=== PATIENT | female | born 1950 | race Caucasian/White ===

== ENCOUNTER 2023-11-22 15:34 | Emergency (ER) | payer MEDICARE, SELFPAY ==
[2023-11-22 15:40] VITALS: BP 124/82; PULSE 101; RESP 18; O2SAT 95; BMI 34.1
--- NOTE | 2023-11-22 15:45 | XR_ITS ---
The [address] [address] Patient Name: ROSI DENNEY MRN: [id number] date: 1950 Sex: F Assigned Patient Location: ER Current Patient Location: ED.MAIN Accession/Order Number: [id number] Exam Date: 11/22/2023 15:55 Report Date: 11/22/2023 16:14 At the request of: CANDI MATTA Procedure: XR chest 1V EXAM: Chest x-ray HISTORY: . Cough, covid + . COMPARISON: None. TECHNIQUE: Single view of the chest FINDINGS: Vascularity are unremarkable. Lungs are free of focal infiltrates. Grossly no bony abnormality is appreciated. XR/XR chest 1V IMPRESSION: No acute heart or lung disease identified. Electronically authenticated by: RICHARD ANDRADE Date: 11/22/2023 16:14
[2023-11-22 15:46] VITALS: O2SAT 97
--- NOTE | 2023-11-22 15:47 | ED.URI1 ---
HPI - URI/Sore Throat General Chief Complaint: Upper Respiratory Infection Stated Complaint: COVID POS-ASTHMA DIFF BREATHING Time Seen by Provider: 11/22/23 15:35 Source: patient Limitations: no limitations History of Present Illness HPI Narrative: Patient is a 73-year-old female with a history of asthma who presents to the emergency department for COVID type symptoms for the past 5 days. She states she had multiple family member sick with COVID in the home, she took a positive home test this week after being sick and taking care of them. She states she has a history of asthma and uses multiple inhalers although she is not able to use albuterol because it makes her tachycardic. She states she believes the COVID illness is exacerbating her asthma although she is not noted to be wheezing. She states when she has had similar asthma exacerbations in the past she needs a Z-Elia and steroids. She has not had any objective fevers in the last several days although she had fevers at the beginning of the course of her illness. She does not complain of chest pain, she has had minimal sputum production. She states she is only short of breath when she is coughing vigorously. No other medications taken prior to arrival. She is anticoagulated with Xarelto for her history of A-fib Related Data Home Medications Medication Instructions Recorded Confirmed cyclobenzaprine 10 mg tablet 10 mg PO .qhs PRN muscle spasm 11/22/23 11/22/23 diltiazem HCl 180 mg 180 mg PO Q24H 11/22/23 11/22/23 capsule,extended release 24 hr fluticasone 250 mcg-salmeterol 50 1 inh inhalation Q12H 11/22/23 11/22/23 mcg/dose blistr powdr for inhalation (Advair Diskus) levalbuterol tartrate 45 2 puff inhalation BID 11/22/23 11/22/23 mcg/actuation aerosol inhaler montelukast 10 mg tablet 10 mg PO QDAY 11/22/23 11/22/23 oxycodone 5 mg tablet 5 mg PO .qhs 11/22/23 11/22/23 pregabalin 150 mg capsule 150 mg PO QDAY 11/22/23 11/22/23 rivaroxaban 20 mg tablet (Xarelto) 20 mg PO Q24H 11/22/23 11/22/23 Previous Rx's Medication Instructions Recorded azithromycin 250 mg tablet See Rx Instructions PO .COMPLEX #6 11/22/23 (Zithromax Z-Elia) tabs ondansetron 4 mg disintegrating 4 mg PO Q6H PRN nausea and 11/22/23 tablet vomiting #12 tabs prednisone 20 mg tablet See Rx Instructions .Route 11/22/23 .COMPLEX #9 tabs Allergies Allergy/AdvReac Type Severity Reaction Status Date / Time acetaminophen [From Tylenol] AdvReac Verified 11/22/23 15:40 ibuprofen [From Advil] AdvReac Verified 11/22/23 15:40 Review of Systems ROS Constitutional Reports: fever; Denies: chills Ears, nose, mouth, and throat Denies: nasal congestion Cardiovascular Denies: chest pain Respiratory Reports: shortness of breath and cough; Denies: wheezing or coughing up blood Gastrointestinal Denies: nausea, vomiting or diarrhea Genitourinary Denies: painful urination Musculoskeletal Denies: back pain or neck pain Integumentary/Breast Denies: rash Neurological Denies: headache Hematologic/Lymphatic Denies: easy bruising PFSH PFSH Social History Smoking status: Never smoker Exam Narrative Exam Narrative: Gen.: Awake, alert, in no distress Head: Normocephalic, atraumatic ENT: Moist mucous membranes Respiratory: No respiratory distress, lungs clear bilaterally; harsh dry cough noted; no wheezing or rhonchi Cardio: Regular rate and rhythm Extremities: Moves extremities equally Psych: Normal mood and affect Neuro: No focal neuro deficit Skin: Warm, dry, intact Constitutional Vital Signs, click to edit/add: Last Vital Signs Pulse 101 H 11/22/23 15:40 Resp 18 11/22/23 15:40 BP 124/82 11/22/23 15:40 Pulse Ox 97 11/22/23 15:46 O2 Del Method Room Air 11/22/23 15:46 Course Vital Signs Vital signs: Vital Signs Pulse Rate 101 H 11/22/23 15:40 Respiratory Rate 18 11/22/23 15:40 Blood Pressure 124/82 11/22/23 15:40 Pulse Oximetry 95 11/22/23 15:40 Oxygen Delivery Method Room Air 11/22/23 15:40 Pulse Rate 101 H 11/22/23 15:40 Respiratory Rate 18 11/22/23 15:40 Blood Pressure 124/82 11/22/23 15:40 Pulse Oximetry 97 11/22/23 15:46 Oxygen Delivery Method Room Air 11/22/23 15:46 MDM - URI/Sore Throat MDM Narrative Medical decision making narrative: Patient with stable vital signs in the ER, she maintains normal oxygen saturation. Chest x-ray shows no evidence of acute cardiopulmonary changes. Patient mentions multiple times she thinks she needs a Z-Elia and it was explained to her that the Z-Elia will not likely improve her illness but given her age and history, she is given a Z-Elia and prednisone. She is not wheezing in the ER, she has no hypoxia and she is anticoagulated. She is discharged home with prescriptions to continue her home inhalers, Zofran given as needed for nausea. Follow-up with PCP and return to the ER if symptoms change or worsen. Patient is well-hydrated and nontoxic with stable respiration at time of reevaluation by attending physician prior to discharge. Medical Records Attestation: I reviewed the patient's medical records. Imaging Data Chest x-ray: Attestation: I have reviewed the pertinent imaging results. Radiologist's impression: Procedure: XR chest 1V EXAM: Chest x-ray HISTORY: . Cough, covid + . COMPARISON: None. TECHNIQUE: Single view of the chest FINDINGS: Vascularity are unremarkable. Lungs are free of focal infiltrates. Grossly no bony abnormality is appreciated. IMPRESSION: No acute heart or lung disease identified. Electronically authenticated by: RICHARD ANDRADE Date: 11/22/2023 16:14 Discharge Plan Discharge Chief Complaint: Upper Respiratory Infection Clinical Impression: COVID-19 Patient Disposition: Home, Self-Care Time of Disposition Decision: 16:24 Condition: Good Prescriptions / Home Meds: New prednisone 20 mg tablet See Rx Instructions .ROUTE .COMPLEX Qty: 9 0RF Rx Instructions: 3 tabs daily for 1 days, then 2 tabs daily for 2 days, then 1 tab daily for 2 days; to begin steroids 11/23/23 azithromycin [Zithromax Z-Elia] 250 mg tablet See Rx Instructions .ROUTE .COMPLEX Qty: 6 0RF Rx Instructions: For 250 mg dose pack: take 500 mg today (day 1), then 250 mg for 4 days (days 2-5) ondansetron 4 mg tablet,disintegrating 4 mg PO Q6H PRN (Reason: nausea and vomiting) Qty: 12 0RF No Action cyclobenzaprine 10 mg tablet 10 mg PO .qhs PRN (Reason: muscle spasm) diltiazem HCl 180 mg capsule,extended release 24hr 180 mg PO Q24H fluticasone propion-salmeterol [Advair Diskus] 250-50 mcg/dose blister with device 1 inh INHALATION Q12H levalbuterol tartrate 45 mcg/actuation HFA aerosol inhaler 2 puff INHALATION BID montelukast 10 mg tablet 10 mg PO QDAY oxycodone 5 mg tablet 5 mg PO .qhs pregabalin 150 mg capsule 150 mg PO QDAY Xarelto 20 mg tablet 20 mg PO Q24H Instructions: COVID-19 (Coronavirus Disease 2019) (ED), How to Recover from COVID-19 at Home (ED) Stand Alone Forms: Portal Instructions Referrals: Giovanny Ellington DO [Primary Care Provider] - 1 week
[2023-11-22] MEDS: PREDNISONE 20 MG TABLET 60 MG PO (16:12)
[2023-11-22 16:35] VITALS: BP 120/72; PULSE 88; RESP 22; O2SAT 97
== END 2023-11-22 16:36 | disposition home or self-care (01) ==
PROVIDERS: Emergency Provider Emergency Medicine; PCP Internal Medicine
DX: U07.1 COVID-19 (principal); J45.909 Unspecified asthma, uncomplicated; Z79.899 Other long term (current) drug therapy; Z79.01 Long term (current) use of anticoagulants; I48.91 Unspecified atrial fibrillation
CPT/HCPCS: 71045; 99283

== ENCOUNTER 2024-01-15 08:57 | Outpatient (OUT) | payer MEDICARE, SELFPAY ==
[2024-01-15 09:12] LABS: Basophils Absolute Auto 0.1 10^3/uL (0.0-0.1); Basophils Percent Auto 0.9 % (0.2-2.0); Eosinophils Absolute Auto 0.2 10^3/uL (0.0-0.7); Eosinophils Percent Auto 1.6 % (0.9-7.0); Hematocrit 47.1 % (36.0-48.0); Hemoglobin 14.9 g/dL (12.0-16.0); Immature Granulocytes Abs Auto 0.03 10^3/uL (0.00-0.03); Immature Granulocytes Pct Auto 0.3 % (0.0-0.5); Lymphocytes Absolute Auto 2.5 10^3/uL (1.2-3.8); Lymphocytes Percent Auto 27.1 % (20.5-60.0); Mean Corpuscular HGB Conc 31.6 g/dL (29.9-35.2); Mean Corpuscular Hemoglobin 27.7 pg (26.7-34.0); Mean Corpuscular Volume 87.5 fL (81.0-99.0); Mean Platelet Volume 9.7 fL (9.5-13.5); Monocytes Absolute Auto 0.7 10^3/uL (0.3-0.8); Monocytes Percent Auto 7.8 % (1.7-12.0); Neutrophils Absolute Auto 5.7 10^3/uL (1.4-6.5); Neutrophils Percent Auto 62.3 % (43.0-75.0); Platelet Count 301 10^3/uL (150-450); Red Blood Count 5.38 10^6/uL (4.20-5.40); Red Cell Distribution Width 14.3 % (11.0-15.0); White Blood Count 9.2 10^3/uL (4.0-11.0)
--- NOTE | 2024-01-15 09:16 | MM_ITS ---
Patient Name: ROSI DENNEY MR#: [id number] : 1950 Exam Date: 01/15/2024 Ordering Doctor: DR Giovanny Ellington D.O. RADIOLOGY REPORT PROCEDURE: MM TOMOSYNTHESIS SCREENING BI COMPARISON: MM SCREENING MAMMO BI, 03/08/2021. INDICATIONS: screening Calculator Name NCI Breast Cancer Risk Assessment Tool 5 Year Breast Cancer Risk Not Reported. Lifetime Breast Cancer Risk Not Reported. Personal Breast Cancer No Personal Ovarian Cancer No Treatments None Family Cancers None LOCATION: [facility] BREAST COMPOSITION: Scattered areas fibroglandular density. FINDINGS: DIAGNOSTIC CATEGORY 1--NEGATIVE. RIGHT BREAST: No significant suspicious finding. No significant change has occurred. LEFT BREAST: No significant suspicious finding. No significant change has occurred. RECOMMENDATIONS: ROUTINE MAMMOGRAM AND CLINICAL EVALUATION IN 12 MONTHS. PLEASE NOTE: A NORMAL MAMMOGRAM DOES NOT EXCLUDE THE POSSIBILITY OF BREAST CANCER. A CLINICALLY SUSPICIOUS PALPABLE LUMP SHOULD BE BIOPSIED. Dictated by: Caio Mathews M.D. on 01/21/2024 at 10:41 Approved by: Caio Mathews M.D. on 01/21/2024 at 10:49
[2024-01-15 09:29] LABS: Alanine Aminotransferase 17 U/L (14-59); Anion Gap 10.7; BUN Creatinine Ratio 12.8; Calcium 8.9 mg/dL (8.5-10.1); Carbon Dioxide 29.5 mmol/L (21.0-32.0); Chloride 109 mmol/L (98-107); Chol HDL Ratio 4.7; Cholesterol 200 mg/dL (<=200); Estimated GFR (African America 60 (>=60); Estimated GFR (Non-African Ame 49 (>=60); Glucose 101 mg/dL (74-106); HDL Cholesterol 43 mg/dL (40-60); LDL Cholesterol Calculated 136.8 mg/dL; Potassium 4.2 mmol/L (3.5-5.1); Sodium 145 mmol/L (136-145); Triglycerides 101 mg/dL (<=150); VLDL CHOLESTEROL 20.2 mg/dL
== END 2024-01-15 08:58 | disposition home or self-care (01) ==
LOC: MAMMO 08:57
PROVIDERS: PCP Internal Medicine; Visit Provider Internal Medicine
DX: E78.2 Mixed hyperlipidemia (principal); I10 Essential (primary) hypertension; I48.0 Paroxysmal atrial fibrillation; Z12.31 Encounter for screening mammogram for malignant neoplasm of breast
CPT/HCPCS: 36415; 77063; 77067; 80048; 80061; 84460; 85025

== ENCOUNTER 2024-08-03 10:28 | Outpatient (REF) | payer MEDICARE, SELFPAY ==
[2024-08-03 12:22] LABS: Internal Control Within Normal Limits; SARS-CoV-2 Ag NEGATIVE (NEGATIVE)
== END 2024-08-03 10:29 | disposition home or self-care (01) ==
LOC: LAB 10:28
PROVIDERS: PCP Internal Medicine; Visit Provider Internal Medicine
DX: Z20.822 Contact with and (suspected) exposure to COVID-19 (principal)
CPT/HCPCS: 87635; 87811

== ENCOUNTER 2024-10-05 14:47 | Outpatient (OUT) | payer MEDICARE, SELFPAY | END 2024-10-05 14:48 | disposition home or self-care (01) | LOC: PST 14:47 | PROVIDERS: PCP Internal Medicine; Visit Provider Ophthalmology | DX: Z01.818 Encounter for other preprocedural examination (principal); H25.12 Age-related nuclear cataract, left eye ==

== ENCOUNTER 2024-10-07 07:19 | Day surgery (SDC) | payer MEDICARE, SELFPAY ==
--- NOTE | 2024-10-07 | OP_ITS ---
OPERATION DATE: 10/07/2024 SURGEON: Bill Bland D.O. PREOPERATIVE DIAGNOSIS: Nuclear sclerotic cataract left eye POSTOPERATIVE DIAGNOSIS: Nuclear sclerotic cataract left eye. PROCEDURE NAME: Cataract extraction with intraocular lens placement of the left eye. ANESTHESIA: Topical ESTIMATED BLOOD LOSS: Zero. COMPLICATIONS: None. PROCEDURE: The patient was brought to the Operating Room in supine position. After proper identification, the left eye was prepped and draped in a sterile ophthalmic fashion. A paracentesis was created at the 5 o'clock position. Approximately 1 cc of unpreserved Xylocaine was injected into the anterior chamber followed by Amvisc Plus. Using a 2.6 mm Keratome blade, a clear corneal incision was created at the 2 o'clock limbus. A cystotome was then used to begin a curvilinear capsulorrhexis that was continued for 360 degrees with the Utrata forceps. BSS on a 26 gauge cannula was injected beneath the anterior capsule to hydrodissect as well as hydrodelineate the lens. After ensuring mobility, phacoemulsification was performed in a mhlganb-czv-nehffo-type fashion. After all nuclear material had been removed from the eye, IA was introduced and all residual cortical material was cleaned up. Additional Amvisc Plus was injected into the posterior bag and a lens model MX60, 22.0 diopters was injected and dialed into position. After ensuring centration, IA was re- introduced into the anterior chamber and all residual Amvisc Plus was removed from the eye. BSS on a 30 gauge cannula was injected into the stroma of both the clear corneal incision as well as paracentesis to hydrate the wounds. Additional BSS was injected into the anterior chamber to pressurize the eye at approximately 20 to 22 mmHg by finger tension. 0.1 cc of antibiotic was injected into the anterior chamber, and Weck-Malina sponges were used to check the wounds to be watertight. One drop of apraclonidine and one drop of prednisolone acetate were placed into the eye and a shield was placed over top. The patient was sent to the postoperative area in satisfactory condition to follow up the following day for postoperative care. ISMAEL
--- NOTE | 2024-10-07 07:19 | HP_ITS ---
PREOPERATIVE HISTORY AND PHYSICAL Date:? 10/07/2024 HISTORY:? The patient is a 73-year-old white female with complaints of declining vision out of her left eye.? She believes that this has been ongoing for approximately 1-2 years, gradually worsening over that time frame.? She has difficulty watching television and seeing the TV guide.? She also has difficultly seeing the road signs at a distance.? Finally, she states having difficulty at night time while driving because of headlights creating halos and glare.? PAST OCULAR HISTORY:? Dry eyes. PAST MEDICAL HISTORY:? 1.? Paroxysmal atrial fibrillation. 2.? Sleep apnea. 3.? Non-alcoholic fatty liver disease. 4.? Asthma. 5.? Mitral insufficiency. 6.? Hypertension. 7.? Hyperlipidemia. 8.? Bradycardia. SOCIAL HISTORY:? No tobacco, alcohol or recreational drug abuse.? SYSTEMIC MEDICATIONS:? Include Lyrica, doxycycline, Zofran, fluticasone, salmeterol, diltiazem, ALLERGIES:? To acetaminophen, metronidazole, aspirin, iodinated contrast media and NSAIDs. REVIEW OF SYSTEMS:? No pertinent positives. PHYSICAL EXAM:? GENERAL:? She is awake, alert and oriented x3, well developed, well nourished, in no acute distress.? HEART:? Regular rate and rhythm. LUNGS:? Clear bilaterally. ABDOMEN:? Soft, non-tender, non-distended. EXTREMITIES:? No pitting edema. OPHTHALMIC EXAM:? Revealed a visual acuity of 20/50 bilaterally that glared to 20/200 bilaterally.? Pupils motility, muscle balance, confrontational visual perry within normal limits bilaterally.? Pressures were measured at 16 bilaterally.? Slit lamp exam revealed blepharitis with a severe decrease in tear film bilaterally.? Conjunctiva, cornea, anterior chamber and iris were within normal limits bilaterally.? Lens status demonstrated 3+ nuclear sclerosis, 1+ cortical changes in the right; 2-3+ nuclear sclerosis and 1+ cortical changes in the left eye.? FUNDUS EXAM:? Revealed a good view with good dilation bilaterally.? Optic discs, vessels, periphery and vitreous were within normal limits bilaterally.? The macula demonstrate mottling of the retina pigment epithelium bilaterally.?? ASSESSMENT AND PLAN:? Visually significant cataract, left eye.? After risks, benefits, alternatives, as well as expectations were delivered to the patient, she elected to go forward with cataract removal.? She understands the risks include but not limited to infection, bleeding, loss of vision, loss of the eye itself.? Secondly, she understands postoperatively she is likely to require spectacle correction for best visual acuity.? Finally, a complete ophthalmic exam was performed, there is not determined to be any other source of visual decline other than that of the cataract.? After understanding all the risks as well as expectations, she elected to go forward with procedure as listed above and will be doing so in the near future. ISMAEL
[2024-10-07] MEDS: TROPICAMIDE 1% OP SOL 300 DROP/15 ML BOTTLE OP ×4 (07:34→07:59)
[2024-10-07] MEDS: PHENYLEPHRINE HCL 2.5% OP SOL 40 DROP/2 ML BOTTLE OP ×4 (07:34→08:00)
[2024-10-07] MEDS: DIAZEPAM 5 MG TABLET PO (07:34)
[2024-10-07] MEDS: CYCLOPENTOLATE HCL 1% OP SOL 40 DROP/2 ML BOTTLE OP ×4 (07:35→08:00)
[2024-10-07] MEDS: OFLOXACIN 0.3% OP SOL 100 DROP/5 ML BOTTLE OP ×4 (07:35→08:00)
[2024-10-07 07:40] VITALS: BP 163/76; PULSE 89; TEMP 36.2; O2SAT 95
[2024-10-07] MEDS: LIDOCAINE 2% JELLY 10 ML TOPICAL (08:38)
[2024-10-07] MEDS: PROPARACAINE HCL 0.5% 300 DROP/15 ML BOTTLE OP (08:39)
[2024-10-07] MEDS: BETADINE POVIDONE-IODINE 5% OP SOL 30 ML BOTTLE OP (08:41)
[2024-10-07] MEDS: HYALURONATE SODIUM 16 MG/ML SYRINGE OP (08:46)
[2024-10-07] MEDS: PHENYLEPHRINE/KETOROLAC 1-0.3% ML VIAL 4 ML IRR (08:46)
[2024-10-07] MEDS: LIDOCAINE HCL 1% PF 20 MG/2 ML VIAL INJ (08:46)
[2024-10-07] MEDS: TETRACAINE HCL 0.5% OP SOL 80 DROP/4 ML BOTTLE OP (08:47)
[2024-10-07] MEDS: CEFUROXIME SODIUM 750 MG, 0.9 % SODIUM CHLORIDE 16.3 ML OP (08:47)
[2024-10-07 08:48] VITALS: BP 154/85; BP 156/89; PULSE 72; PULSE 78; O2SAT 99
[2024-10-07] MEDS: PREDNISOLONE ACETATE OP 1% SUSP 100 DROPS/5 ML 1 DROP OP (08:57)
[2024-10-07] MEDS: APRACLONIDINE HCL 0.5% SOL 100 DROP/5 ML BOTTLE OP (08:57)
== END 2024-10-07 09:18 | disposition home or self-care (01) ==
LOC: SURGOUT 07:20
PROVIDERS: PCP Internal Medicine; Visit Provider Ophthalmology
PROC: (CPT 66984; principal; 2024-10-07 08:30)
DX: H25.12 Age-related nuclear cataract, left eye (principal)
CPT/HCPCS: 66984; J0697; V2630

== ENCOUNTER 2024-10-23 16:16 | Emergency (ER) | payer MEDICARE, SELFPAY ==
[2024-10-23 16:20] VITALS: BP 182/92; PULSE 86; TEMP 36.7; O2SAT 97; BMI 36.3
--- NOTE | 2024-10-23 16:29 | XR_ITS ---
The [address] [address] Patient Name: ROSI DENNEY MRN: [id number] date: 1950 Sex: F Assigned Patient Location: ER Current Patient Location: ER Accession/Order Number: [id number] Exam Date: 10/23/2024 16:43 Report Date: 10/23/2024 17:34 At the request of: JERMAIN NEWELL Procedure: XR knee LT 3V PROCEDURE: XR knee LT 3V, 10/23/2024 4:43 PM EST CLINICAL INDICATIONS: Traumatic injury and fall, knee pain COMPARISON: None TECHNIQUE: Left knee, 3 views FINDINGS: Anatomic alignment of left total knee arthroplasty is present. Visualized hardware intact. Acute osseous pathology is not seen. Mild medial collateral ligament enthesopathy noted. Large knee effusion is not suspected although assessment is severely limited given obliquity on the lateral projection. Vascular calcifications are seen. XR/XR knee LT 3V IMPRESSION: 1. No acute traumatic osseous pathology 2. Left total knee arthroplasty, visualized hardware intact 3. Medial collateral ligament enthesopathy 4. Lateral knee assessment is nondiagnostic given obliquity. Electronically authenticated by: MARISOL RAMIREZ Date: 10/23/2024 17:34
--- NOTE | 2024-10-23 16:29 | CT_ITS ---
The [address] [address] Patient Name: ROSI DENNEY MRN: [id number] date: 1950 Sex: F Assigned Patient Location: ER Current Patient Location: ER Accession/Order Number: [id number] Exam Date: 10/23/2024 16:43 Report Date: 10/23/2024 17:24 At the request of: JERMAIN NEWELL Procedure: CT head/brain wo con CT HEAD WITHOUT CONTRAST. INDICATION: Fall. COMPARISON: None available for comparison TECHNIQUE: Axial CT head images from the skull base to the vertex without IV contrast were acquired. Coronal and sagittal reformats were also obtained. FINDINGS: EXTRA-AXIAL SPACE: Age-appropriate ventricles. No acute extra-axial collection. No extra-axial mass. No midline shift. CEREBRUM: There are areas of periventricular and deep white matter low-attenuation, which is nonspecific but likely reflective of chronic microvascular ischemic disease.. No CT evidence of acute large territorial cortical infarct, hemorrhage or mass effect. CEREBELLUM: No focal abnormality. No CT evidence of acute infarct, hemorrhage or mass effect. BRAINSTEM: No focal abnormality. No CT evidence of acute infarct, hemorrhage or mass effect. EXTRACRANIAL STRUCTURES. The paranasal sinuses are clear. Mastoid air cells are clear. Orbits are unremarkable. No discrete pituitary mass. Intact calvarium. CT/CT head/brain wo con IMPRESSION: No acute intracranial abnormality. Electronically authenticated by: ESTHER HILL Date: 10/23/2024 17:24
--- NOTE | 2024-10-23 16:30 | ED_ITS ---
HPI HPI - General Adult General Chief complaint: Head Injury Stated complaint: FALL, ON BLOOD THINNERS Time Seen by Provider: 10/23/24 16:19 Source: patient Mode of arrival: walk-in Limitations: no limitations History of Present Illness HPI narrative: 73-year-old female presents for head injury and left knee pain. She fell 20 minutes ago and hit her left temporal area as well as her left knee. This happened when she tripped in a parking lot. She has a little bit of neck discomfort as well. Her hips do not hurt. She is on Xarelto but ran out 5 days ago. Related Data Home Medications ?Medication ?Instructions ?Recorded ?Confirmed cyclobenzaprine 10 mg tablet 10 mg PO .qhs PRN muscle spasm 11/22/23 10/23/24 fluticasone 250 mcg-salmeterol 50 1 inh inhalation Q12H 11/22/23 10/23/24 mcg/dose blistr powdr for inhalation (Advair Diskus) levalbuterol tartrate 45 2 puff inhalation BID 11/22/23 10/23/24 mcg/actuation aerosol inhaler montelukast 10 mg tablet 10 mg PO QDAY 11/22/23 10/23/24 pregabalin 150 mg capsule 150 mg PO QDAY 11/22/23 10/23/24 rivaroxaban 20 mg tablet (Xarelto) 20 mg PO Q24H 11/22/23 10/23/24 diltiazem HCl 120 mg 120 mg PO Q24H 10/23/24 10/23/24 capsule,extended release 24 hr epinephrine 0.3 mg/0.3 mL 0.3 ml subcut Q4H 10/23/24 10/23/24 injection, auto-injector Allergies Allergy/AdvReac Type Severity Reaction Status Date / Time iodine Allergy Severe Anaphylaxis Verified 10/23/24 16:26 metronidazole Allergy Severe Unknown Verified 10/23/24 16:26 acetaminophen (From Tylenol) AdvReac Unknown Verified 10/23/24 16:26 ibuprofen (From Advil) AdvReac Unknown Verified 10/23/24 16:26 Opioid HPI Opioid Management Most Recent Opioid Data: Last Pain Scale 5 10/23/24 16:31 10/23/24 Review of Systems ROS Narrative A ten point review of systems is negative except as noted above. PFS PFSH Medical History (Updated 10/23/24 @ 18:00 by Alvino Allen MD) Nonalcoholic fatty liver disease ?K76.0 - Fatty (change of) liver, not elsewhere classified (ICD-10) COVID-19 ?U07.1 - COVID-19 (ICD-10) Degenerative joint disease ?M19.90 - Unspecified osteoarthritis, unspecified site (ICD-10) A-fib ?I48.91 - Unspecified atrial fibrillation (ICD-10) Asthma ?J45.909 - Unspecified asthma, uncomplicated (ICD-10) TIA (transient ischemic attack) ?G45.9 - Transient cerebral ischemic attack, unspecified (ICD-10) Surgical History (Updated 10/04/24 @ 14:41 by Corrie Lanier) History of eyelid surgery ?Z98.890 - Other specified postprocedural states (ICD-10) H/O: hysterectomy ?Z90.710 - Acquired absence of both cervix and uterus (ICD-10) H/O oophorectomy History of hip replacement ?Z96.649 - Presence of unspecified artificial hip joint (ICD-10) Total knee replacement status ?Z96.659 - Presence of unspecified artificial knee joint (ICD-10) H/O knee surgery ?Z98.890 - Other specified postprocedural states (ICD-10) Family History (Updated 10/04/24 @ 14:42 by Corrie Lanier) Other Black lung Liver disease Rheumatic heart disease Social History (Updated 10/04/24 @ 14:43 by Corrie Lanier) Within the past year, how often did you have a drink containing alcohol: never Score interpretation: A score less than 3 is consistent with normal alcohol consumption. 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 General: The patient appears in no apparent distress. Patient is resting comfortably on cart. Skin: Warm, dry, no pallor noted. There is no rash noted. Head: Normocephalic, bruising present in the left temporal region. Eye: Normal conjunctiva, no drainage Ears, Nose, Mouth, and Throat: oral mucosa is moist. Cardiovascular: Irregularly irregular Respiratory: Patient is in no distress, no accessory muscle use, lungs are clear to auscultation, no wheezing, rales or rhonchi Back: Mild discomfort in the posterior neck. No tenderness in the thoracic or lumbar spines GI: Soft and nontender Musculoskeletal: The left knee has old healed surgical scar present. She has some tenderness. Knee has full range of motion as do both hips. Neurological: A&O, normal speech Psychiatric: Cooperative Constitutional Vital Signs, click to edit/add: Last Vital Signs Temp 98.1 F 10/23/24 16:20 Pulse 69 10/23/24 17:03 Resp 20 10/23/24 17:03 BP 164/82 H 10/23/24 17:03 Pulse Ox 99 10/23/24 17:03 O2 Del Method Room Air 10/23/24 16:20 Course Vital Signs Vital signs: Vital Signs Temperature 98.1 F 10/23/24 16:20 Pulse Rate 86 10/23/24 16:20 Respiratory Rate 18 10/23/24 16:20 Blood Pressure 182/92 H 10/23/24 16:20 Pulse Oximetry 97 10/23/24 16:20 Oxygen Delivery Method Room Air 10/23/24 16:20 Temperature 98.1 F 10/23/24 16:20 Pulse Rate 69 10/23/24 17:03 Respiratory Rate 20 10/23/24 17:03 Blood Pressure 164/82 H 10/23/24 17:03 Pulse Oximetry 99 10/23/24 17:03 Oxygen Delivery Method Room Air 10/23/24 16:20 Medical Decision Making MDM Narrative Medical decision making narrative: CAT scans of head and C-spine and the x-ray of her left knee are all negative per radiologist. She is able to be discharged home. Treatment diagnosis and follow-up were discussed with the patient. Differential Diagnosis Differential Diagnosis: Subarachnoid hemorrhage, SDH, epidural hematoma, head contusion Imaging Data CT scan - head: Radiologist's impression: ITS Impressions Head CT 10/23/24 16:29 IMPRESSION: No acute intracranial abnormality. Electronically authenticated by: ESTHER HILL Date: 10/23/2024 17:24 Knee X-Ray 10/23/24 16:29 IMPRESSION: 1. No acute traumatic osseous pathology 2. Left total knee arthroplasty, visualized hardware intact 3. Medial collateral ligament enthesopathy 4. Lateral knee assessment is nondiagnostic given obliquity. Electronically authenticated by: MARISOL RAMIREZ Date: 10/23/2024 17:[address] 10/23/24 16:30 IMPRESSION: Negative for fracture or subluxation. Degenerative changes. Electronically authenticated by: TORRIE RODRIGUEZ Date: 10/23/2024 17:45 Discharge Plan Discharge Chief Complaint: Head Injury Clinical Impression: Closed head injury, Fall Patient Disposition: Home, Self-Care Time of Disposition Decision: 17:59 Condition: Good Mode of Transportation: Private Vehicle Prescriptions / Home Meds: No Action cyclobenzaprine 10 mg tablet 10 mg PO .qhs PRN (Reason: muscle spasm) fluticasone propion-salmeterol [Advair Diskus] 250-50 mcg/dose blister with device 1 inh INHALATION Q12H levalbuterol tartrate 45 mcg/actuation HFA aerosol inhaler 2 puff INHALATION BID montelukast 10 mg tablet 10 mg PO QDAY pregabalin 150 mg capsule 150 mg PO QDAY Xarelto 20 mg tablet 20 mg PO Q24H diltiazem HCl 120 mg capsule,extended release 24hr 120 mg PO Q24H epinephrine 0.3 mg/0.3 mL auto-injector 0.3 ml subcut Q4H Print Language: Lithuanian Instructions: Fall Prevention for Older Adults (ED), Head Injury (ED) Referrals: Giovanny Ellington DO [Primary Care Provider] - 1 week
--- NOTE | 2024-10-23 16:30 | CT_ITS ---
The [address] [address] Patient Name: ROSI DENNEY MRN: [id number] date: 1950 Sex: F Assigned Patient Location: ER Current Patient Location: ER Accession/Order Number: [id number] Exam Date: 10/23/2024 16:43 Report Date: 10/23/2024 17:45 At the request of: JERMAIN NEWELL Procedure: CT cervical spine wo con EXAM: CT cervical spine wo con HISTORY: Fell, hit head, neck pain COMPARISON: None. TECHNIQUE: CT C-spine noncontrast. Axial scans with reformatted coronal sagittal images. Individualized radiation dose reduction used for this exam. FINDINGS: No fracture or subluxation. Atlantoaxial degenerative joint disease moderate. Mild disc narrowing spurring C5-6. Degenerative changes most prominent lower C-spine. Prevertebral soft tissues unremarkable. No lower neck or upper chest abnormality. CT/CT cervical spine wo con IMPRESSION: Negative for fracture or subluxation. Degenerative changes. Electronically authenticated by: TORRIE RODRIGUEZ Date: 10/23/2024 17:45
[2024-10-23 17:03] VITALS: BP 164/82; PULSE 69; O2SAT 99
[2024-10-23 18:00] VITALS: BP 144/82; PULSE 72; O2SAT 97
== END 2024-10-23 18:21 | disposition home or self-care (01) ==
PROVIDERS: Emergency Provider Emergency Medicine; PCP Internal Medicine
DX: S09.8XXA Other specified injuries of head, initial encounter (principal); M25.562 Pain in left knee; M54.2 Cervicalgia; Z79.01 Long term (current) use of anticoagulants; Z96.652 Presence of left artificial knee joint; W01.0XXA Fall on same level from slipping, tripping and stumbling without subsequent striking against object, initial encounter
CPT/HCPCS: 70450; 72125; 73562; 99284

== ENCOUNTER 2024-11-02 14:12 | Outpatient (OUT) | payer MEDICARE, BC, SELFPAY | END 2024-11-02 14:13 | disposition home or self-care (01) | LOC: PST 14:12 | PROVIDERS: PCP Internal Medicine; Visit Provider Ophthalmology | DX: Z01.818 Encounter for other preprocedural examination (principal); H25.811 Combined forms of age-related cataract, right eye ==

== ENCOUNTER 2024-11-04 06:30 | Day surgery (SDC) | payer MEDICARE, BC, SELFPAY ==
--- NOTE | 2024-11-04 | OP_ITS ---
OPERATION DATE: 11/04/2024 SURGEON: Bill Bland D.O. PREOPERATIVE DIAGNOSIS: Nuclear sclerotic cataract right eye. POSTOPERATIVE DIAGNOSIS: Nuclear sclerotic cataract right eye. PROCEDURE NAME: Cataract extraction with intraocular lens placement of the right eye. ANESTHESIA: Topical ESTIMATED BLOOD LOSS: Zero. COMPLICATIONS: None. PROCEDURE: The patient was brought to the Operating Room in supine position. After proper identification, the right eye was prepped and draped in a sterile ophthalmic fashion. A paracentesis created at the 11 o'clock position. Approximately 1 cc of unpreserved Xylocaine was injected into the anterior chamber followed by Amvisc Plus. Using a 2.6 mm Keratome blade, a clear corneal incision was created at the 9 o'clock limbus. A cystotome was then used to begin a curvilinear capsulorrhexis that was continued for 360 degrees with the Utrata forceps. BSS on a 26 gauge cannula was injected beneath the anterior capsule to hydrodissect as well as hydrodelineate the lens. After ensuring mobility, phacoemulsification was performed in a aiuhobu-lon-zlndpl-type fashion. After all nuclear material had been removed from the eye, IA was introduced and all residual cortical material was cleaned up. Additional Amvisc Plus was injected into the posterior bag and a lens model MX60, 21.0 diopters was injected and dialed into position. After ensuring centration, IA was reintroduced into the anterior chamber and all residual Amvisc Plus was removed from the eye. BSS on a 30 gauge cannula was injected into the stroma of both the clear corneal incision as well as paracentesis to hydrate the wounds. Additional BSS was injected into the anterior chamber to pressurize the eye at approximately 20 to 22 mmHg by finger tension. 0.1 cc of antibiotic was injected into the anterior chamber and Weck-Malina sponges were used to check the wounds to be watertight. One drop of apraclonidine and one drop of prednisolone acetate placed into the eye and a shield was placed over top. The patient was sent to the postoperative area in satisfactory condition to follow up the following day for postoperative care. ISMAEL
--- NOTE | 2024-11-04 | HP_ITS ---
PREOPERATIVE HISTORY AND PHYSICAL ? Date:? 11/03/2024 ? HISTORY:? The patient is a 74-year-old female with complaints of declining vision out of her right eye.? She states that this has been noticeable over the last 6-12 months, rapidly progressing.? She has difficulty watching TV and seeing the newspaper.? She has difficulty with daily activities.? Night time driving is difficult because of headlights creating glare and halos.? ? PAST OCULAR HISTORY / PAST MEDICAL HISTORY / SOCIAL HISTORY / MEDICATIONS / ALLERGIES TO MEDICATIONS / REVIEW OF SYSTEMS / PHYSICAL EXAMINATION:? Unchanged from previously dictated. ? ASSESSMENT AND PLAN:? Visually significant cataract, right eye.? After the risks, benefits, alternatives as well as expectations were delivered to the patient, she elected to go forward with cataract removal.? She understands the risks to include but not limited to infection, bleeding, loss of vision or loss of the eye itself.? Secondly, she understands that postoperatively she is likely to require spectacle correction for her best visual acuity.? Finally, a complete ophthalmic exam was performed and there was not determined to be any other source of vision decline other than that of cataract.? ? After understanding all risks as well as expectations, she elected to go forward with the procedures as listed above and will be doing so in the near future. ISMAEL
[2024-11-04] MEDS: PHENYLEPHRINE HCL 2.5% OP SOL 40 DROP/2 ML BOTTLE OP ×4 (06:54→07:37)
[2024-11-04] MEDS: TROPICAMIDE 1% OP SOL 300 DROP/15 ML BOTTLE OP ×4 (06:55→07:37)
[2024-11-04] MEDS: CYCLOPENTOLATE HCL 1% OP SOL 40 DROP/2 ML BOTTLE OP ×4 (06:56→07:37)
[2024-11-04] MEDS: DIAZEPAM 5 MG TABLET PO (07:00)
[2024-11-04 07:03] VITALS: BP 166/95; PULSE 78; TEMP 35.9; O2SAT 100
[2024-11-04] MEDS: OFLOXACIN 0.3% OP SOL 100 DROP/5 ML BOTTLE OP ×4 (07:06→07:37)
[2024-11-04] MEDS: LIDOCAINE 2% JELLY 10 ML TOPICAL (07:58)
[2024-11-04] MEDS: BETADINE POVIDONE-IODINE 5% OP SOL 30 ML BOTTLE OP (07:59)
[2024-11-04] MEDS: PROPARACAINE HCL 0.5% 300 DROP/15 ML BOTTLE OP (07:59)
[2024-11-04 08:10] VITALS: BP 145/121; PULSE 44; O2SAT 100
[2024-11-04] MEDS: HYALURONATE SODIUM 16 MG/ML SYRINGE OP (08:12)
[2024-11-04] MEDS: APRACLONIDINE HCL 0.5% SOL 100 DROP/5 ML BOTTLE OP (08:12)
[2024-11-04] MEDS: CEFUROXIME SODIUM 750 MG, 0.9 % SODIUM CHLORIDE 16.3 ML OP (08:12)
[2024-11-04] MEDS: LIDOCAINE HCL 1% PF 20 MG/2 ML VIAL INJ (08:12)
[2024-11-04] MEDS: TETRACAINE HCL 0.5% OP SOL 80 DROP/4 ML BOTTLE OP (08:13)
[2024-11-04] MEDS: PHENYLEPHRINE/KETOROLAC 1-0.3% ML VIAL 4 ML IRR (08:13)
[2024-11-04] MEDS: PREDNISOLONE ACETATE OP 1% SUSP 100 DROPS/5 ML 1 DROP OP (08:13)
[2024-11-04 08:14] VITALS: BP 148/112; PULSE 54; O2SAT 99
== END 2024-11-04 08:30 | disposition home or self-care (01) ==
LOC: SURGOUT 06:31
PROVIDERS: PCP Internal Medicine; Visit Provider Ophthalmology
PROC: (CPT 66984; principal; 2024-11-04 07:50)
DX: H25.11 Age-related nuclear cataract, right eye (principal)
CPT/HCPCS: 66984; J0697; V2630

== ENCOUNTER 2025-04-05 08:04 | Outpatient (OUT) | payer MEDICARE, SELFPAY ==
--- NOTE | 2025-04-05 08:36 | XR_ITS ---
The [address] [address] Patient Name: ROSI DENNEY MRN: [id number] date: 1950 Sex: F Assigned Patient Location: [facility] Current Patient Location: [facility] Accession/Order Number: [id number] Exam Date: 04/05/2025 10:47 Report Date: 04/05/2025 10:48 At the request of: ANNITA KRUGER DO Procedure: XR chest 2V Chest 2 views CLINICAL HISTORY: Cough COMPARISON: Chest 11/22/2023 FINDINGS: Heart appears normal in size. Lungs are clear. No free air. XR/XR chest 2V IMPRESSION: NO ACUTE CARDIOPULMONARY ABNORMALITY. Impression dictated by: Thaddeus Moreira Jr. DElisaOElisa 04/05/2025 10:48 AM Dictation Location: [place] [address] Electronically authenticated by: [id number] Y Date: 04/05/2025 10:48
--- NOTE | 2025-04-05 08:36 | XR_ITS ---
The [address] [address] Patient Name: ROSI DENNEY MRN: [id number] date: 1950 Sex: F Assigned Patient Location: [facility] Current Patient Location: [facility] Accession/Order Number: [id number] Exam Date: 04/05/2025 10:45 Report Date: 04/05/2025 10:47 At the request of: ANNITA KRUGER DO Procedure: XR hip LT 2V w/ pelvis Left hip 2 views of one view pelvis. Reason for exam: Left hip pain. COMPARISON: None. FINDINGS: Mild degenerative changes of the left hip without acute bony process. Degenerative changes noted involving the SI joints and pubic symphysis. Partially visualized right RANDI. XR/XR hip LT 2V w/ pelvis IMPRESSION: Mild degenerative changes of the left hip without acute bony process. Impression dictated by: Thaddeus Moreira Jr., D.O. 04/05/2025 10:47 AM Dictation Location: [place] [address] Electronically authenticated by: [id number] Y Date: 04/05/2025 10:47
== END 2025-04-05 08:05 | disposition home or self-care (01) ==
LOC: RAD 08:07
PROVIDERS: PCP Internal Medicine; Visit Provider Internal Medicine
DX: M25.552 Pain in left hip (principal); R05.9 Cough, unspecified
CPT/HCPCS: 71046; 73502

== ENCOUNTER 2025-04-13 08:40 | Outpatient (OUT) | payer MEDICARE, SELFPAY ==
[2025-04-13 09:04] LABS: Hemoglobin 15.3 g/dL (12.0-16.0)
[2025-04-13] MEDS: LEVALBUTEROL HCL 1.25 MG/3 ML VIAL NEB IH (09:56)
--- NOTE | 2025-04-13 10:19 | ECG_ITS ---
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 Measurements Intervals Ramona Rate: 70 P: 71 VA: 187 QRS: 47 QRSD: 130 T: 137 QT: 388 QTc: 421 Interpretive Statements SINUS RHYTHM WITH FREQUENT VENTRICULAR PREMATURE COMPLEXES IN A BIGEMINAL PATTERN MODERATE INTRAVENTRICULAR CONDUCTION DELAY [105+ ms QRS DURATION, 80+ ms Q/S IN V1/V2, NO Q AND 60+ ms R IN I/aVL/V5/V6] NONSPECIFIC ST & T-WAVE ABNORMALITY No previous ECG available for comparison Electronically Signed On 04-13-2025 22:57:35 EDT by ISRA MARRERO M.D.
--- NOTE | 2025-04-13 11:27 | RT_ITS ---
The [facility] Test Date: 2025-04-13 Pat Name: ROSI DENNEY Department: Room: - Gender: Female Sanitary Plumber: Mandie Wahl RRT : 1950 Requested By: ANNITA KRUGER Order Number: [id number] Reading MD: Antony Gomes Interpretive Statements Pulmonary function testing was completed according to ATS criteria. Findings were considered accurate and reproducible. Both pre- and post-bronchodilator values utilized for spirometry. Spirometry (based on pre-bronchodilator values): -FEV1/FVC: Normal @ 81% -FEV1: Normal @ 84% -FVC: Mildly reduced @ 78% -There is no significant bronchodilator response. Lung volumes by plethysmography: -RV: Normal @ 115% -TLC: Normal @ 96% Diffusion capacity: -DLCO: Mild reduction @ 71% when corrected for Hb 15.3g/dL -Flow volume loop: -Mild restrictive pattern Impressions: -There is a mild restrictive pattern in spirometry without an increased TLC - this can represent an obesity pattern (stated BMI is 33.5). There is a mildly decreased DLCO. This can be seen in early interstitial lung disease or cardiovascular pulmonary disease; early emphysema can also present with an isolated diffusion impairment, though there does not appear to be a significant obstruction as airway resistance is low. Clinical correlation required. Electronically Signed On 04-14-2025 14:44:38 EDT by Antony Gomes
--- NOTE | 2025-04-13 12:51 | XR_ITS ---
The [address] [address] Patient Name: ROSI DENNEY MRN: [id number] date: 1950 Sex: F Assigned Patient Location: CARD Current Patient Location: CARD Accession/Order Number: [id number] Exam Date: 04/13/2025 15:17 Report Date: 04/13/2025 15:23 At the request of: ANNITA KRUGER DO Procedure: XR lumbar spine 6V w bending XR lumbar spine 6V w bending 04/13/2025 1:15 PM SIGNS AND SYMPTOMS: Left hip pain and right knee pain PROTOCOLS: Frontal, lateral, and oblique radiographs of the lumbar spine including flexion and extension COMPARISON: 04/14/2019 FINDINGS: There is a levoconvex curvature of the lumbar spine. There is no pathologic movement on flexion or extension. The bones are in anatomic alignment otherwise. There is moderate to severe disc height loss at L2-3 and L4-5. There is mild intervertebral disc height loss otherwise. Facet degenerative changes are noted, greatest in the lower lumbar spine similar to the prior exam. Degenerative changes are noted in the sacroiliac joints, left greater than right. There is total right hip arthroplasty hardware. There is ossification of the iliolumbar ligament bilaterally. Atherosclerotic changes are noted in the abdominal aorta. XR/XR lumbar spine 6V w bending IMPRESSION: No fracture or subluxation. No pathologic movement. There is a levoconvex curvature of the lumbar spine. Degenerative changes are noted, greatest at L2-L3 similar to the prior study. Impression dictated by: Dale Dias M.D. 04/13/2025 3:23 PM Dictation Location: [place] [address] Electronically authenticated by: [id number] Y Date: 04/13/2025 15:23
== END 2025-04-13 08:41 | disposition home or self-care (01) ==
LOC: CARD 08:41
PROVIDERS: PCP Internal Medicine; Visit Provider Internal Medicine
DX: J45.41 Moderate persistent asthma with (acute) exacerbation (principal); M47.816 Spondylosis without myelopathy or radiculopathy, lumbar region; M51.369 Other intervertebral disc degeneration, lumbar region without mention of lumbar back pain or lower extremity pain
CPT/HCPCS: 36415; 72114; 85018; 93005; 94060; 94726; 94729

== ENCOUNTER 2025-04-13 11:04 | Emergency (ER) | payer MEDICARE, SELFPAY ==
[2025-04-13] VITALS (10 sets, daily range): BP systolic 145–176; BP diastolic 72–86; PULSE 63–83; O2SAT 91–98; BMI 33.4
--- NOTE | 2025-04-13 11:21 | ECG_ITS ---
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 Measurements Intervals [place] Rate: 71 P: 61 CO: 198 QRS: 75 QRSD: 132 T: 54 QT: 442 QTc: 464 Interpretive Statements 1100 Sinus rhythm 1575 with frequent ventricular premature complexes in a pattern of bigeminy 2330 Nonspecific intraventricular conduction block 3114 Cannot rule out anterior myocardial infarction, age undetermined 9150 abnormal ECG Compared to ECG 04/13/2025 10:30:34 No significant changes Electronically Signed On 04-13-2025 23:01:01 EDT by ISRA MARRERO M.D.
[2025-04-13 11:35] LABS: Basophils Absolute Auto 0.1 10^3/uL (0.0-0.1); Basophils Percent Auto 0.8 % (0.2-2.0); Eosinophils Absolute Auto 0.1 10^3/uL (0.0-0.7); Eosinophils Percent Auto 1.1 % (0.9-7.0); Hematocrit 46.4 % (36.0-48.0); Hemoglobin 15.4 g/dL (12.0-16.0); Immature Granulocytes Abs Auto 0.03 10^3/uL (0.00-0.03); Immature Granulocytes Pct Auto 0.3 % (0.0-0.5); Lymphocytes Absolute Auto 3.7 10^3/uL (1.2-3.8); Lymphocytes Percent Auto 39.8 % (20.5-60.0); Mean Corpuscular HGB Conc 33.2 g/dL (29.9-35.2); Mean Corpuscular Hemoglobin 28.5 pg (26.7-34.0); Mean Corpuscular Volume 85.9 fL (81.0-99.0); Mean Platelet Volume 10.2 fL (9.5-13.5); Monocytes Absolute Auto 0.7 10^3/uL (0.3-0.8); Monocytes Percent Auto 7.3 % (1.7-12.0); Neutrophils Absolute Auto 4.6 10^3/uL (1.4-6.5); Neutrophils Percent Auto 50.7 % (43.0-75.0); Platelet Count 247 10^3/uL (150-450); Red Cell Distribution Width 14.1 % (11.0-15.0); White Blood Count 9.2 10^3/uL (4.0-11.0)
--- NOTE | 2025-04-13 11:46 | ED.GENADUL1 ---
HPI HPI - General Adult General Chief complaint: Arrhythmia/Palpitations Stated complaint: ARYTHEMIA Time Seen by Provider: 04/13/25 11:10 Source: patient and other Source information: Respiratory Therapy department Mode of arrival: Wheelchair Limitations: no limitations History of Present Illness HPI narrative: 74-year-old female presents for abnormal heart rhythm. She has no symptoms at all. No chest pain or palpitations or dizziness. She states she really does not even want to be here but they made her come here so she did. She was getting an outpatient pulmonary function test. She has a history of hypokalemia and had seen a workers' compensation mediator but has not seen them for about 2 years. Related Data Home Medications ?Medication ?Instructions ?Recorded ?Confirmed cyclobenzaprine 10 mg tablet 10 mg PO .qhs PRN muscle spasm 11/22/23 04/13/25 fluticasone 250 mcg-salmeterol 50 1 inh inhalation Q12H 11/22/23 04/13/25 mcg/dose blistr powdr for inhalation (Advair Diskus) levalbuterol tartrate 45 2 puff inhalation BID 11/22/23 04/13/25 mcg/actuation aerosol inhaler montelukast 10 mg tablet 10 mg PO QDAY 11/22/23 04/13/25 pregabalin 150 mg capsule 150 mg PO QDAY 11/22/23 04/13/25 rivaroxaban 20 mg tablet (Xarelto) 20 mg PO Q24H 11/22/23 04/13/25 diltiazem HCl 120 mg 120 mg PO Q24H 10/23/24 04/13/25 capsule,extended release 24 hr epinephrine 0.3 mg/0.3 mL 0.3 ml subcut Q4H 10/23/24 04/13/25 injection, auto-injector glycine 500 mg capsule 1,000 mg PO 04/13/25 Allergies Allergy/AdvReac Type Severity Reaction Status Date / Time iodine Allergy Severe Anaphylaxis Verified 10/23/24 16:26 metronidazole Allergy Severe vertigo Verified 11/04/24 06:50 acetaminophen (From Tylenol) AdvReac fatty liver Verified 11/04/24 06:50 ibuprofen (From Advil) AdvReac Unknown Verified 10/23/24 16:26 Opioid HPI Opioid Management Most Recent Opioid Data: Last Pain Scale 5 11/23/24, 16:31 Review of Systems ROS Narrative A ten point review of systems is negative except as noted above. [facility] Medical History (Updated 04/13/25 @ 12:32 by Alvino Allen MD) Nonalcoholic fatty liver disease ?K76.0 - Fatty (change of) liver, not elsewhere classified (ICD-10) COVID-19 ?U07.1 - COVID-19 (ICD-10) Degenerative joint disease ?M19.90 - Unspecified osteoarthritis, unspecified site (ICD-10) A-fib ?I48.91 - Unspecified atrial fibrillation (ICD-10) Asthma ?J45.909 - Unspecified asthma, uncomplicated (ICD-10) TIA (transient ischemic attack) ?G45.9 - Transient cerebral ischemic attack, unspecified (ICD-10) Surgical History (Updated 11/02/24 @ 13:45 by Mily Serna RN) History of cataract surgery ?Z98.49 - Cataract extraction status, unspecified eye (ICD-10) History of eyelid surgery ?Z98.890 - Other specified postprocedural states (ICD-10) H/O: hysterectomy ?Z90.710 - Acquired absence of both cervix and uterus (ICD-10) H/O oophorectomy History of hip replacement ?Z96.649 - Presence of unspecified artificial hip joint (ICD-10) Total knee replacement status ?Z96.659 - Presence of unspecified artificial knee joint (ICD-10) H/O knee surgery ?Z98.890 - Other specified postprocedural states (ICD-10) Family History (Updated 10/04/24 @ 14:42 by Corrie Lanier) Other Black lung Liver disease Rheumatic heart disease Social History (Updated 10/04/24 @ 14:43 by Corrie Lanier) Within the past year, how often did you have a drink containing alcohol: never Score interpretation: A score less than 3 is consistent with normal alcohol consumption. 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 General: The patient appears well and in no apparent distress. Patient is resting comfortably on cart. Skin: Warm, dry, no pallor noted. There is no rash noted. Head: Normocephalic, atraumatic Eye: Normal conjunctiva, no drainage Ears, Nose, Mouth, and Throat: oral mucosa is moist. Nares patent. Cardiovascular: Generally regular with an occasional early beat Respiratory: Patient is in no distress, no accessory muscle use, lungs are clear to auscultation, no wheezing, rales or rhonchi Back: non-tender GI: Soft and nontender Musculoskeletal: The patient has no evidence of calf tenderness, no pitting edema, symmetrical pulses noted bilaterally Neurological: A&O, normal speech Psychiatric: Cooperative Constitutional Vital Signs, click to edit/add: Last Vital Signs Pulse 68 04/13/25 12:20 Resp 24 H 04/13/25 12:20 BP 145/72 H 04/13/25 12:18 Pulse Ox 96 04/13/25 12:20 O2 Del Method Room Air 04/13/25 11:13 Course Vital Signs Vital signs: Vital Signs Pulse Rate 80 04/13/25 11:13 Respiratory Rate 18 04/13/25 11:13 Blood Pressure 176/86 H 04/13/25 11:13 Pulse Oximetry 98 04/13/25 11:13 Oxygen Delivery Method Room Air 04/13/25 11:13 Pulse Rate 68 04/13/25 12:20 Respiratory Rate 24 H 04/13/25 12:20 Blood Pressure 145/72 H 04/13/25 12:18 Pulse Oximetry 96 04/13/25 12:20 Oxygen Delivery Method Room Air 04/13/25 11:13 Medical Decision Making [facility] Narrative Medical decision making narrative: The patient is generally in bigeminy but it is asymptomatic. Her electrolytes including her potassium are normal and she is released. She will follow-up with her family doctor. There is no indication for intervention at this point emergently. Treatment diagnosis and follow-up were discussed with the patient. Differential Diagnosis Differential Diagnosis: PVCs, bigeminy, atrial fibrillation Lab Data Lab results reviewed: Yes I reviewed the patient's lab results Labs: Lab Results 04/13/25 Range/Units 11:25 WBC 9.2 (4.0-11.0) 10^3/uL RBC 5.40 (4.20-5.40) 10^6/uL Hgb 15.4 (12.0-16.0) g/dL Hct 46.4 (36.0-48.0) % MCV 85.9 (81.0-99.0) fL MCH 28.5 (26.7-34.0) pg MCHC 33.2 (29.9-35.2) g/dL RDW 14.1 (11.0-15.0) % Plt Count 247 (150-450) 10^3/uL MPV 10.2 (9.5-13.5) fL Neut % (Auto) 50.7 (43.0-75.0) % Lymph % (Auto) 39.8 (20.5-60.0) % [place] % (Auto) 7.3 (1.7-12.0) % Eos % (Auto) 1.1 (0.9-7.0) % Baso % (Auto) 0.8 (0.2-2.0) % Neut # (Auto) 4.6 (1.4-6.5) 10^3/uL Lymph # (Auto) 3.7 (1.2-3.8) 10^3/uL [place] # (Auto) 0.7 (0.3-0.8) 10^3/uL Eos # (Auto) 0.1 (0.0-0.7) 10^3/uL Baso # (Auto) 0.1 (0.0-0.1) 10^3/uL Abs Immat Gran (auto) 0.03 (0.00-0.03) 10^3/uL Imm/Tot Granulo (auto) 0.3 (0.0-0.5) % Sodium 141 (136-145) mmol/L Potassium 3.6 (3.5-5.1) mmol/L Chloride 105 (98-107) mmol/L Carbon Dioxide 25.8 (21.0-32.0) mmol/L Anion Gap 13.8 BUN 17.0 (7.0-18.0) mg/dL Creatinine 1.07 H (0.55-1.02) mg/dL Est GFR ( Amer) >60 (>=60 mL/min/1.73m^2) Est GFR (Non-Af Amer) 50 L (>=60 mL/min/1.73m^2) BUN/Creatinine Ratio 15.9 Glucose 107 H (74-106) mg/dL Calcium 8.8 (8.5-10.1) mg/dL Magnesium 2.0 (1.8-2.4) mg/dL Troponin I High Sens 5.5 (4.0-51.3) pg/mL Imaging Data Chest x-ray: Radiologist's impression: Normal heart size, no edema or pneumonia ECG Data Attestation: I personally reviewed and interpreted this ECG as follows: (EKG on my interpretation shows bigeminy, otherwise sinus rhythm) Discharge Plan Discharge Chief Complaint: Arrhythmia/Palpitations Clinical Impression: Bigeminy Patient Disposition: Home, Self-Care Time of Disposition Decision: 12:25 Condition: Good Mode of Transportation: Private Vehicle Prescriptions / Home Meds: No Action cyclobenzaprine 10 mg tablet 10 mg PO .qhs PRN (Reason: muscle spasm) fluticasone propion-salmeterol [Advair Diskus] 250-50 mcg/dose blister with device 1 inh INHALATION Q12H levalbuterol tartrate 45 mcg/actuation HFA aerosol inhaler 2 puff INHALATION BID montelukast 10 mg tablet 10 mg PO QDAY pregabalin 150 mg capsule 150 mg PO QDAY Xarelto 20 mg tablet 20 mg PO Q24H diltiazem HCl 120 mg capsule,extended release 24hr 120 mg PO Q24H epinephrine 0.3 mg/0.3 mL auto-injector 0.3 ml subcut Q4H glycine 500 mg capsule 1,000 mg PO Print Language: Polish Instructions: Premature Ventricular Contractions (ED) Referrals: Giovanny Ellington DO [Primary Care Provider, Internal Medicine] - 1 week
[2025-04-13 11:53] LABS: Anion Gap 13.8; BUN Creatinine Ratio 15.9; Carbon Dioxide 25.8 mmol/L (21.0-32.0); Chloride 105 mmol/L (98-107); Estimated GFR (African America >60 (>=60 mL/min/1.73m^2); Estimated GFR (Non-African Ame 50 (>=60 mL/min/1.73m^2); Glucose 107 mg/dL (74-106); Potassium 3.6 mmol/L (3.5-5.1); Sodium 141 mmol/L (136-145); Troponin I High Sensitivity 5.5 pg/mL (4.0-51.3)
[2025-04-13 11:57] LABS: Calcium 8.8 mg/dL (8.5-10.1)
== END 2025-04-13 12:47 | disposition home or self-care (01) ==
PROVIDERS: Emergency Provider Emergency Medicine; PCP Internal Medicine
DX: R00.8 Other abnormalities of heart beat (principal); J45.41 Moderate persistent asthma with (acute) exacerbation; M47.816 Spondylosis without myelopathy or radiculopathy, lumbar region; M51.369 Other intervertebral disc degeneration, lumbar region without mention of lumbar back pain or lower extremity pain; Z90.710 Acquired absence of both cervix and uterus; Z96.649 Presence of unspecified artificial hip joint; Z96.659 Presence of unspecified artificial knee joint
CPT/HCPCS: 36415; 71045; 72114; 80048; 83735; 84484; 85018; 85025; 93005; 94060; 94726; 94729; 99285

== ENCOUNTER 2025-05-17 07:29 | Outpatient (OUT) | payer MEDICARE, SELFPAY ==
--- NOTE | 2025-05-17 07:30 | CA_ITS ---
Patient Name: ROSI DENNEY MR#: [id number] : 1950 Exam Date: 05/17/2025 Ordering Doctor: DR ANNITA KRUGER D.O. ECHOCARDIOGRAM REPORT PROCEDURE: CA ECHO DOPPLER COMPLETE INDICATIONS: Chest pain, ventricular bigeminy, hypertension COMPARISON: None. DESCRIPTION: COMPLETE ECHOCARDIOGRAM Real-time transthoracic echocardiography with 2D, M-mode, spectral and color flow Doppler performed. QUALITY: Technical quality was good. LEFT VENTRICLE: Normal chamber size. Proximal septal hypertrophy (sigmoid septum). Systolic function is difficult to assess due to rhythm but appears at the lower limits of normal. LV EF: Lower limits of normal left ventricular ejection fraction, (50-55%). DIASTOLIC: Diastolic function is indeterminate. ATRIAL SEPTUM: Visually appears intact. LEFT ATRIUM: Mild dilatation. RIGHT ATRIUM: Normal chamber size. RIGHT VENTRICLE: Normal chamber size. Normal right ventricular systolic function. TRICUSPID VALVE: Normal mobility and thickness. No stenosis with mild regurgitation. No evidence of pulmonary hypertension. RVSP 23 mmHg MITRAL VALVE: Normal mobility and thickness. No evidence of mitral valve stenosis. There is no mitral annular calcification. Mild mitral regurgitation. AORTIC VALVE: Normal trileaflet appearance. No visible sclerosis. Normal leaflet mobility. No evidence of aortic valve stenosis. No aortic regurgitation. AORTIC ROOT: Normal diameter and appearance, measuring 2.7 cm. Ascending aorta is normal in size, measuring 2.7 cm. PULMONIC VALVE: Normal thickness and mobility. No stenosis. Trivial regurgitation. PERICARDIUM: No evidence of pericardial effusion. IVC: Collapses with inspiration. IVC is dilated (2.3 cm) PLEURA: CONCLUSION: 1. Normal left ventricular size with low normal systolic function. LVEF is estimated at 50 to 55%. 2. Normal right ventricular size and systolic function. 3. Mild mitral and tricuspid regurgitation. 4. Normal right-sided pressures. Adult Echocardiography Procedure Report Left Ventricle LVEDD (3.7 - 5.6 cm): 4.00 cm LVESD (2.2 - 4.0 cm): 3.48 cm LVIVS thickness (0.6 - 1.2 cm): 1.24 cm LVPW thickness (0.5 - 1.0 cm): 1.05 cm e': 0.08 m/s E - e': 9.17 LVOT Max Gradient: 1.58 mm[Hg] LVOT Area (cm2): 0.63 m/s Peak Velocity (LVOT): 0.63 m/s Mean Velocity (LVOT): 0.38 m/s LVOT Diameter 2.02 cm Left Atrium LA Volume Index (2D A2C): 20.42 ml/m2 Left Atrium Systolic Dimension: 3.76 cm Mitral Valve MV E to A Ratio: 0.80 Mitral Valve A-Wave Peak Velocity: 0.94 m/s Mitral Valve E-Wave Peak Velocity: 0.75 m/s Right Ventricle Aorta AO Root Diam: 2.68 cm Ascending Ao Diam: 2.69 cm Aortic Valve AoV Area (Peak Mathew): 1.76 cm2, 1.76 cm2 AoV Area (VTI): 1.97 cm2, 1.97 cm2 Peak Velocity(Antegrade Flow): 1.15 m/s Peak Gradient(Antegrade Flow): 5.30 mm[Hg] Mean Velocity(Antegrade Flow): 0.73 m/s Mean Gradient(Antegrade Flow): 2.51 mm[Hg] Velocity Time Integral: 24.96 cm Tricuspid Valve Peak Velocity (Regurgitant Flow): 1.97 m/s Pulmonic Valve Peak Velocity: 1.11 m/s Peak Gradient: 4.94 mm[Hg] Right Atrium Right Atrium Systolic Pressure: 27.39 ml, 27.39 ml Dictated by: Brijesh Louise M.D. on 05/17/2025 at 18:02 Approved by: Brijesh Louise M.D. on 05/17/2025 at 18:07
--- NOTE | 2025-05-17 08:20 | NM_ITS ---
Patient Name: ROSI DENNEY MR#: [id number] : 1950 Exam Date: 05/17/2025 Ordering Doctor: DR ANNITA KRUGER D.O. RADIOLOGY REPORT PROCEDURE: NM CRISTINA PERF SPECT REST STR COMPARISON: None. INDICATIONS: VENTRICULAR BIGEMINY, DYSPNEA ON EXERTION, PAROXYSMAL AFIB TECHNIQUE: Exam Description: Stress/Rest one day protocol gated SPECT Rest Imagin.8 mCi Tc-99m Cardiolite IV on 05/17/2025 Stress Imaging 30.5 mCi Tc-99m Cardiolite IV on 05/17/2025 Exercise Protocol: 0.4 mg Lexiscan given IV Heart Rate (bpm): Rest: 72 Max: 96 PMHR: 64 Blood Pressure: Rest: 138/80 Max: 144/84 Symptoms: Rest and peak stress ECG findings were pending and the exercise portion of the study was pending per attending physician [facility]. For more details please see separate cardiac stress test report. FINDINGS: QUALITY OF STUDY: Good PERFUSION DEFECT: None LOCATION: N/A SIZE: N/A SEVERITY: N/A TYPE: N/A WALL MOTION: Normal wall motion LV SIZE: 70 mL. TID / TCD: 0.9 LVEF: Calculated EF 72%. SUMMARY: Myocardial perfusion imaging study is normal CONCLUSION: 1. Myocardial perfusion is normal 2. Global left ventricular systolic function is hyperdynamic; ejection fraction is 72%\ 3. No evidence of significant transient ischemic dilation Dictated by: Isabella Perez M.D. on 05/17/2025 at 15:25 Approved by: Isabella Perez M.D. on 05/17/2025 at 15:27
--- NOTE | 2025-05-17 10:24 | PC.NURSE ---
Nursing Note Cardiac Stress Test Reviewed: Medication, allergies and patient history reviewed. Stress Test: [x ] Patient tolerated stress test well. [ ] Patient unable to tolerate walking on treadmill. Switched to Lexiscan stress test. [x] No chest pain noted per patient [ ] Chest pain that resolved prior to leaving stress lab. [x ] No dyspnea noted. [ ] Dyspnea that resolved prior to leaving stress lab. [x ] Patient left stress lab asymptomatic and hemodynamically stable. [ ] Patient taken to the Emergency Room due to non-resolving symptoms following stress test. [ ] Patient achieved target heart rate. [ ] Patient unable to achieve target heart rate. [ ] Aminophylline administered as reversal agent to Lexiscan (Regadenoson). [ ] Nitro administered. Nursing Comments:Pt had Lexiscan test done. Pt tolerated well. No abnormal symptoms reported. Pt was taken to the cafeteria by wheelchair for breakfast prior to second set of images.
[2025-05-17] MEDS: REGADENOSON 0.4 MG/5 ML SYRINGE IV (10:30)
== END 2025-05-17 07:30 | disposition home or self-care (01) ==
LOC: CARD 07:29
PROVIDERS: PCP Internal Medicine; Visit Provider Internal Medicine
DX: R07.9 Chest pain, unspecified (principal); R06.09 Other forms of dyspnea; I48.0 Paroxysmal atrial fibrillation; I49.8 Other specified cardiac arrhythmias; I10 Essential (primary) hypertension; R01.1 Cardiac murmur, unspecified
CPT/HCPCS: 78452; 93017; 93242; 93306; A9500; J2785

== ENCOUNTER 2025-05-17 07:30 | Outpatient (OUT) | payer MEDICARE, SELFPAY ==
--- OUTSIDE RECORDS SUMMARY | 2023-12-31 04:30 | XMS_ITS ---
Author Organization The [facility] in [place] Address [address] [place] [address] Care Team Providers Care Supervisor Cigar Making Hand Name Role Phone Giovanny Ellington DO Primary Care Provider Francheska Garcia Unavailable [phone] REASON FOR VISIT 220LBS, LBBB, FADY, CM HAVEAUTH Encounters Encounter Location Date Provider Diagnosis Cardiology [facility] [address] [place] [address] 12/31/2023 Francheska Connell Plan Of Treatment No Information Progress Notes * Neli DENNEY CDOB:[birth year] (73 yo F)Acc No.[id number]:12/31/2023 Nuclear Stress Test Patient: Yasmeen Downingith Lisa Provider: Breana Connell MD :1950 A ge:73 Y S ex:Female Date:12/31/2023 Address:[address] [place] [id number] Pcp:Giovanny Ellington DO Check In:08:00 AM ESTCheck O ut:11:10 AM EST Subjective: * Chief Complaints: * 1 . 220LBS, LBBB, FADY, CM HAVEAUTH. * Active Problem List J45.20 Mild intermittent as thma without complication Modified On:11/13/2022W/U Status:confirmed F51.01 Primary insomnia Modified On:05/07/2021W/U Status:confirmed I48.0 Paroxysmal atrial fi brillation Modified On:09/08/2023U Status:confirmed I10 Essential Hypertensi on Modified On:09/19/2021 Status:confirmed E78.2 Mixed hyperlipidemia Modified On:09/19/2021 Status:confirmed K76.0 NAFLD (nonalcoholic fatty liver disease) Modified On:05/07/2021 Status:confirmed M54.42 Lumbago with sciatic a, left side Modified On:04/20/2019U Status:confirmed M54.41 Lumbago with sciatic a, right side Modified On:04/20/2019U Status:confirmed G89.29 Other chronic pain Modified On:09/24/2019 Status:confirmed Z86.010 History of adenomato us polyp of colon Modified On:09/26/2020 Status:confirmed Z80.0 Family history of co margaret cancer Modified On:09/26/2020 Status:confirmed G89.4 Chronic pain syndrom e Modified On:09/26/2020U Status:confirmed M17.12 Primary osteoarthrit is of left knee Modified On:05/19/2020U Status:confirmed 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, deg enerative, lumbar spine Modified On:09/26/2020 Status:confirmed M48.061 Lumbar stenosis Modified On:09/26/2020 Status:confirmed M17.0 Primary osteoarthrit is of both knees Modified On:11/16/2019U Status:confirmed J45.21 Mild intermittent as thma with exacerbation Modified On:11/05/2019U Status:confirmed M17.12 Localized osteoarthr itis of left knee Modified On:11/16/2019U Status:confirmed I47.1 PAT (paroxysmal atri al tachycardia) Modified On:09/08/2023U Status:confirmed Z82.49 Family history of va lvular heart disease Modified On:09/08/2023U Status:confirmed R06.09 BELLAMY (dyspnea on exer tion) Modified On:09/08/2023U Status:confirmed R26.89 Impaired gait and mo bility Modified On:05/21/2022U Status:confirmed M25.562 Pain in left knee Modified On:11/16/2019U Status:confirmed M25.561 Right knee pain, uns pecified chronicity Modified On:11/16/2019U Status:confirmed Z96.652 Status post total le ft knee replacement Modified On:07/12/2020 Status:confirmed G47.33 DEE (obstructive sle ep apnea) Modified On:11/13/2022U Status:confirmed I83.893 Varicose veins of gus th legs with edema Modified On:09/08/2023U Status:confirmed Z47.1 Aftercare following joint replacement surgery Modified On:08/06/2022U Status:confirmed Z96.652 Presence of left art ificial knee joint Modified On:07/14/2020U Status:confirmed Z91.030 History of bee sting allergy Modified On:09/26/2020U Status:confirmed F32.0 Current mild episode of major depressive disorder without prior episode Modified On:09/19/2021U Status:confirmed D72.829 Leukocytosis, unspec ified type Modified On:09/19/2021U Status:confirmed M16.11 Primary osteoarthrit is of right hip Modified On:11/13/2022U Status:confirmed M17.11 Primary osteoarthrit is of right knee Modified On:12/14/2021 Status:confirmed R26.9 Impaired gait Modified On:12/14/2021U Status:confirmed K21.9 Gastroesophageal ref lux disease, unspecified whether esophagitis present Modified On:11/13/2022U Status:confirmed Z96.641 Status post total hi p replacement, right Modified On:11/13/2022U Status:confirmed Z98.890 S/P closed reduction of dislocated total hip prosthesis Modified On:08/06/2022U Status:confirmed Z96.649 Presence of unspecif ied artificial hip joint Modified On:09/26/2022U Status:confirmed I34.0 Mitral valve insuffi ciency, unspecified etiology Modified On:09/08/2023U Status:confirmed T84.020A Dislocation of inter nal right hip prosthesis, initial encounter Modified On:11/13/2022W/U Status:confirmed I44.7 Left bundle-branch b lock, unspecified Modified On:09/08/2023/U Status:confirmed * Medical History: Objective: Assessment: Plan: * Treatment: * * Sign off status: Completed Visit Status: C HK (Check Out) true * Provider: Breana Connell MD Date: 0 12/31/2023 Generated for Guille newby/Carlos/Ashleyitting on: 0 05/17/2025 07:32 AM EDT
--- OUTSIDE RECORDS SUMMARY | 2023-12-31 05:30 | XMS_ITS ---
Author Organization The [facility] in [place] Address [address] [place] [address] Care Team Providers Care Advertising Sales Manager Name Role Phone Giovanny Ellington DO Primary Care Provider Francheska Garcia Unavailable [phone] REASON FOR VISIT JUAN PABLO YANEZ HAVEAUTH Encounters Encounter Location Date Provider Diagnosis Cardiology [facility] [address] [place] [address] 12/31/2023 Francheska Connell Plan Of Treatment No Information Progress Notes * Neli DENNEY CDOB:[birth year] (73 yo F)Acc No.[id number]:12/31/2023 Patient: Kenyatta florenceNeli Provider: Breana Connell MD :1950 A ge:73 Y S ex:Female Date:12/31/2023 Address:[address] [place], [place] [id number] Pcp:Giovanny Ellington DO Check In:08:01 AM ESTCheck O ut:10:15 AM EST Subjective: * Chief Complaints: * 1 . JUAN PABLO YANEZ HAVEAUTH. * Active Problem List J45.20 Mild intermittent as thma without complication Modified On:11/13/2022W/U Status:confirmed F51.01 Primary insomnia Modified On:05/07/2021/U Status:confirmed I48.0 Paroxysmal atrial fi brillation Modified On:09/08/2023/U Status:confirmed I10 Essential Hypertensi on Modified On:09/19/2021 Status:confirmed E78.2 Mixed hyperlipidemia Modified On:09/19/2021 Status:confirmed K76.0 NAFLD (nonalcoholic fatty liver disease) Modified On:05/07/2021 Status:confirmed M54.42 Lumbago with sciatic a, left side Modified On:04/20/2019U Status:confirmed M54.41 Lumbago with sciatic a, right side Modified On:04/20/2019U Status:confirmed G89.29 Other chronic pain Modified On:09/24/2019U Status:confirmed Z86.010 History of adenomato us polyp of colon Modified On:09/26/2020U Status:confirmed Z80.0 Family history of co margaret cancer Modified On:09/26/2020 Status:confirmed G89.4 Chronic pain syndrom e Modified On:09/26/2020U Status:confirmed M17.12 Primary osteoarthrit is of left knee Modified On:05/19/2020U Status:confirmed 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, deg enerative, lumbar spine Modified On:09/26/2020U Status:confirmed M48.061 Lumbar stenosis Modified On:09/26/2020U Status:confirmed M17.0 Primary osteoarthrit is of both [...] post total le ft knee replacement Modified On:07/12/2020U Status:confirmed G47.33 DEE (obstructive sle ep apnea) Modified On:11/13/2022U Status:confirmed I83.893 Varicose veins of gus th legs with edema Modified On:09/08/2023U Status:confirmed Z47.1 Aftercare following joint replacement surgery Modified On:08/06/2022U Status:confirmed Z96.652 Presence of left art ificial knee joint Modified On:07/14/2020U Status:confirmed Z91.030 History of bee sting allergy Modified On:09/26/2020 Status:confirmed F32.0 Current mild episode of major depressive disorder without prior episode Modified On:09/19/2021U Status:confirmed D72.829 Leukocytosis, unspec ified type Modified On:09/19/2021U Status:confirmed M16.11 Primary osteoarthrit is of right hip Modified On:11/13/2022U Status:confirmed M17.11 Primary osteoarthrit is of right knee Modified On:12/14/2021 Status:confirmed R26.9 Impaired gait Modified On:12/14/2021 Status:confirmed K21.9 Gastroesophageal ref lux disease, unspecified [...] nal right hip prosthesis, initial encounter Modified On:11/13/2022U Status:confirmed I44.7 Left bundle-branch b lock, unspecified Modified On:09/08/2023W/U Status:confirmed * Medical History: Objective: Assessment: Plan: * Treatment: * * Sign off status: Completed Visit Status: C HK (Check Out) true * Provider: Breana Connell MD Date: 0 12/31/2023 Generated for Guille newby/Carlos/Anabela on: 0 05/17/2025 07:32 AM EDT
--- OUTSIDE RECORDS SUMMARY | 2024-08-24 05:30 | XMS_ITS ---
Author Organization [facility] Address [address] [place] [address] Care Team Providers Care Associate Director Financial Aid Name Role Phone Dr. Thaddeus Harris Primary Care Provider [phone] Padma Vo [phone] REASON FOR VISIT FILLING Encounters Encounter Location Date [facility] [address] [place] [place] [address] 08/24/2024 Padma Leger Plan Of Treatment No Information Progress Notes * DENNEY, MATHEUSTAZDOB:1950 (74 yo F)Acc No.[id number]:08/24/2024 Patient: ROSI HARRY Provider: Breana Leger DDS :1950 A ge:73 Y S ex:Female Date:08/24/2024 Address:[address] [place], [place] [id number] Pcp:Dr. Thaddeus Harris Subjective: * Chief Complaints: * 1 . FILLING. * Medical History: Objective: * Vitals: Assessment: Plan: * Treatment: * Images: * Electronic signature of Blanca Leger DDS on 05/17/2025 at 07:32 AM EDT Sign off status: Pending * Provider: Breana Leger DDS Date: 0 08/24/2024 Generated for Guille ng/Facompag/eTransmitting on: 0 05/17/2025 07:32 AM EDT
--- OUTSIDE RECORDS SUMMARY | 2024-12-16 10:53 | XMS_ITS ---
Author Organization The [facility] [place] Address [address] [place] [address] Care Team Providers Care Dynamic Balancer Name Role Phone Giovanny Ellington DO Primary Care Provider Unavaila Jill Angelo Unavailable [phone] REASON FOR VISIT colon recall Encounters Encounter Location Date Provider Diagnosis Gastroenterology [facility] [address] [place] [address] 12/16/2024 Jill Cr Plan Of Treatment No Information Progress Notes * Neli DENNEY [birth year]OB:[birth year] (74 yo F)Acc No.[id number]:12/16/2024 Patient: Kenyatta Neli OKEEFE :1950 A ge:74 Y S ex:Female Address:[address] [place] [address], [id number] * true * Date: Generated for Guille newby/Carlos/eTransmitting on: 0 05/17/2025 07:32 AM EDT
--- OUTSIDE RECORDS SUMMARY | 2025-05-17 07:32 | XMS_ITS | Patient Health Record ---
Author Organization [facility] Address [address] [place] [address] Care Team Providers Care Cover Stripper Name Role Phone Dr. Thaddeus Harris Primary Care Provider [phone] Padma Leger Unavailable [phone] Fredrick Moya Unavailable [phone] Reason For Referral No Information Encounters Encounter Location Date Provider Diagnosis [facility] [address] [place] [address] 08/24/2024 Padma Leger Dental caries on pit and fissure surface penetrating into dentin K02.52 Assessments Encounter Date Diagnosis (ICD Code) Assessment Notes Treatment Notes Treatment Clinical Notes Section Notes 08/24/2024 Dental caries on pit and fissure surface penetrating into dentin (ICD-10 - K02.52) Plan Of Treatment No Information Insurance Providers Payer Name Payer Address Payer Phone Subscriber Number Group Number Insured Name Patient Relationship to Insured Coverage Start Date Coverage End Date [facility] MEDICARE ADVANTAGE [address] [place] [address] [phone] [id number] MATHEUS DENNEYITH Self - patient is the insured 4 [employer] [address] [address] [place] [address] [id number] [facility] ROSI DEN[facility] Self - patient is the insured 4
--- OUTSIDE RECORDS SUMMARY | 2025-05-17 07:32 | XMS_ITS | Encounter Summary ---
Author Organization [facility] Address [address] [place] [address] Care Team Providers Care Health Safety Coordinator Name Role Phone Giovnany Ellington DO Primary Care Provider [phone] Encounter Details Date Type Department Care Team ([facility] st Contact Info) Description 07/25/2022 FollowUp Telephone Encounter [facility] [address] [place] [address] Fatoumata Lemus RN Social History Tobacco Use Types Packs/Day Years Used Date Smoking Tobacco: Never Smokeless Tobacco: Never Alcohol Use Standard Drinks/Week Comments Not Currently 0 (1 standard drink = 0.6 oz pur e alcohol) Comments No Sex and Gender Information Value Date Recorded Sex Assigned at Not on file Legal Sex Female 12:15 PM EDT Gender Identity Not on file Sexual Orientation Not on file COVID-19 Exposure Response Date Recorded In the last 10 days, have yo u been in contact with someone who was confirmed or suspected to have Coronavirus/COVID-19? No / Unsure 07/23/2022 6:21 AM EDT documented as of this encounter Plan of Treatment Not on file documented as of this encounter Visit Diagnoses Not on filedocumented in this encounter Care Teams Health Safety Coordinator Relationship Specialty Start Date End Date Giovanny Ellington DO [address] [place] [id number] PCP - General Internal Medicine 07/17/22 documented as of this encounter
--- OUTSIDE RECORDS SUMMARY | 2025-05-17 07:33 | XMS_ITS | Patient Health Record ---
Author Organization [facility] [place] Address [address] [place] [address] Care Team Providers Care Refinery Operator Helper Name Role Phone Chandana Giovanny HAGEN Primary Care Provider Jill Kiser Unavailable [phone] Allergies Allergen (clinical drug ingredient) Drug/Non Drug Allergy documented on EMR Reaction Allergy Type Onset Date Status IV Contrast (uncoded) Unknown Allergy Active Non-steroidal anti-inflammatory agent (FN) NSAIDS (uncoded) Unknown Allergy Active Monistat 1 Unknown Drug Allergy Active Tylenol Unknown Drug Allergy Active Medications Medication SIG (Take, Route, Frequency, Duration) Notes Start Date End Date Status Cardizem CD 180 MG 1 capsule Orally Once a day for 90 days 180 MG Active CPAP - use as directed for 1 year New AUTO CPAP set at 5 to 20 cm H2O with size Full Face mask with chinstrap, headgear, tubings, filters, and heated humidifiers. Lifetime need. 11/13/2022 Active oxyCODONE HCl 5 MG 1 tablet as needed Orally every 4 hrs for 5 days PRN Active Lyrica 150 MG 1 capsule Orally 1-2 times per day 08/24/19 08/24/2019 Active Montelukast Sodium 10 MG 1 tablet Orally Once a day for 30 days Active Xopenex HFA 45 MCG/ACT 1 puff as needed Inhalation every 4 hrs for 30 days 11/13/2022 Active Advair Diskus 250-50 MCG/ACT 1 puff Inhalation Twice a day for 30 days Active Zolpidem Tartrate 10 MG 1 tablet at bedtime as needed Orally 1 qHS for [address] zuleta 08/24/2019 Active Spiriva Respimat 1.25 MCG/ACT 2 puffs Inhalation Once a day * Lot # [id number] , Expiration Date:dec 2024 11/13/2022 Active Xarelto 20 MG TAKE 1 TABLET BY MOUTH EVERY DAY WITH FOOD for 90 Active Immunizations Vaccine Route Administration Date Status Comme nts Flu, Fluad (52931) 65 yrs + Trivalent (5393-2833) IM Intramuscular 09/22/2020 Administered Flu, Unspecified Unknown 10/21/2018 Administered Pneumococcal (Pneumovax 23) IM Intramuscular 04/20/2019 Administered Pneumococcal (Prevnar 13) Unknown 02/18/2009 Administer ed Social History Tobacco Use: Social History Observation Description Date Details (start date - stop date) Never Smoker NA - NA Tobacco Use/Smoking Question Answer Notes Patient is a nonsmoker Alcohol Screen (Audit-C) Question Answer Notes Did you have a drink containing alcohol in the p ast year? No Points 0 Interpretation Negative Encounters Encounter Location Date Provider Diagnosis [facility] [address] [place] [address] 12/16/2024 Jill Cr Plan Of Treatment Pending Test Test Name Order Date CT Hip RT w/o contrast * (Optional 3D Re ndering) 11/13/2022 XR Cervical Spine AP/Flex/Ext/Both Obl 0 08/24/2019 XR Lumbar Spine AP/Lat/Flex/Ext/Obl 08/02 MRI Lumbar Spine w/o contrast 08/24/2019 SED RATE and CRP 03/18/2023 Insurance Providers Payer Name Payer Address Payer Phone Subscriber Number Group Number Insured Name Patient Relationship to Insured Coverage Start Date Coverage End Date [employer]AN [address] [place] [phone] [id number] Neli Gusman Self - patient is the insured 3 Medications Administered Medication Instructions Date of Administration Dosage Notes Bupivacaine 12/07/2021 1 mL RT. HIP JOINT Bupivacaine 12/07/2021 3 mL Bupivacaine 02/08/2022 1 mL RT. HIP JOINT Kenalog, 80 mg/mL (40mg/mL x 2 units) 12/07/2021 2 mL RT. HIP JOINT Kenalog, 80 mg/mL (40mg/mL x 2 units) 12/07/2021 2 mL Kenalog, 80 mg/mL (40mg/mL x 2 units) 02/08/2022 2 mL RT. HIP JOINT Medical (General) History Medical History History ICD Code History of Fatty Liver History of Atrial Fibrillation History of Paroxysmal atrial tachycardia History of TIA History of Asthma Allen History of varicose veins History of mitral valve insufficiency Surgical History Surgery Date(Month/Year) 8 knees surgery-5 on the left and 3 on t he right 2069-1660 hysterectomy 1978 IBSO 1995 appendectomy 1977 Left Total Knee Replacement performed by Dr. Pelayo at [facility] 05/30/2020 Right Total hip replacement performed by dr pelayo at [facility] 07/23/2022 Hospitalization History Reason Date(Month/Year) see above
--- OUTSIDE RECORDS SUMMARY | 2025-05-17 07:33 | XMS_ITS | Clinical Summary ---
Author Organization [facility] [address] [place] [address] Care Team Providers Care Hvac Manager Name Role Phone No Pcp, No Pcp Primary Care Provider Unavailabl e Allergies Active Allergy Reactions Criticality Noted Date Comments Iodinated Contrast Media 01/27/2019 Nsaids (Non-Steroidal Anti-I nflammatory Drug) 01/27/2019 Acetaminophen 01/27/2019 Medications rivaroxaban (XARELTO) 10 mg tablet Take 10 mg by mouth daily. Active dilTIAZem (CARDIZEM) 120 MG tablet Take 120 mg by mouth 4 (four) times a day. Active montelukast (SINGULAIR) 10 mg tablet Take 10 mg by mouth nightly. Active Social History Tobacco Use Types Packs/Day Years Used Date Smoking Tobacco: Never Assessed Childcare Answer Date Recorded Childcare Unknown 05/12/2019 Employment Answer Date Recorded Employment Unknown 05/12/2019 Purpose - Life Answer Date Recorded Purpose and direction in life Unknown Comments Unknown Sex and Gender Information Value Date Recorded Sex Assigned at Not on file Legal Sex Female 10:12 PM EDT Gender Identity Not on file Sexual Orientation Not on file Last Filed Vital Signs Vital Sign Reading Time Taken Comments Blood Pressure 142/60 01/27/2019 10:40 PM EST Pulse 89 01/27/2019 10:40 PM EST Temperature 36.8 C (98.3 F) 01/27/2019 9:48 PM EST Respiratory Rate 20 01/27/2019 10:40 PM EST Oxygen Saturation 97% 01/27/2019 10:40 PM EST Inhaled Oxygen Concentration - - Weight 88.9 kg (196 lb) 01/27/2019 9:48 PM EST Height 170.2 cm (5' 7 ) 01/27/2019 9:48 PM EST Body Mass Index 30.7 01/27/2019 9:48 PM EST Plan of Treatment Not on file Medical Devices Not on file Insurance [employer] MEDICARE Care Teams Hvac Manager Relationship Specialty Start Date End Date No Pcp, No Pcp CAPRICE [place] [id number] PCP - General Family Medicine 01/27/19
--- OUTSIDE RECORDS SUMMARY | 2025-05-17 07:33 | XMS_ITS | Data Portability ---
Author Organization [facility], [facility] Address [address] [facility] [address] [place] [address] Assessment No assessment recorded. Plan of Treatment Reminders Order Date Submit Date Provider Last Modified By Organization Details Last Modified Time Details Appointments None record ed. Lab None record ed. Referral None record ed. Procedures None record ed. Surgeries None record ed. Imaging None record ed. Medication Orders None record ed. Patient TargetsNo targets recorded. Patient Instructions Encounter Date Encounter Id Patient Instructions Last Modified By Organization Details Last Modified Time 04/13/2018 [id number] mask fitting* [email or web address] Not available 1 11:35:54 Reason for Referral None Reported. Results Created Date Observation Date Name Description Value Unit Range Abnormal Flag Note LastModifiedBy Organization Detail LastModifiedTime Result Notes None recorded. Procedures Surgical History Date Name Laterality Status Provider Name and Address Organization Details Recorded Time 04/13/2018 Test - N95 Mask Fit completed Patricia Patel [facility] 04/13/2018 20:50:01 Imaging Results None recorded. Procedure Notes None recorded. Medical Equipment None Reported. Vitals None Recorded Social History None recorded. 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 Family History Nothing Reported. Medical History No medical history recorded. Gynecological HistoryNo gynecological history recorded. Obstetrics History GPAL:G 0 P 0 0 0 0 Past Encounters Encounter ID Performer Location Encounter Start Date Encounter Closed Date Diagnosis/Indication Diagnosis SNOMED-CT Code Diagnosis ICD10 Code Diagnosis Note [id number] Stalin Simons MD [facility] [address] [place] [address] 04/13/2018 19:14:18 04/13/2018 20:53:02 Medical examinations/reports 215677366 Z00.00 Health Concerns Section Related Observation LastModified by Organization Detai ls LastModified Time None Recorded Concern Status LastModified by Organization Details LastModified Time None Recorded Advance Directives Directive None Recorded Payers Insurance Date Sequence Insurance Name Policy Number Policy Roper Covered Member ID Roper Member ID Guarantor Name 04/13/2018 [employer] NA Neli Gusman OBGyn Episode No OBEpisode recorded.
--- OUTSIDE RECORDS SUMMARY | 2025-05-17 07:33 | XMS_ITS | Clinical Summary ---
Author Organization [facility] Address [address] [place] [address] Care Team Providers Care Seed Collector Name Role Phone Giovanny Ellington DO Primary Care Provider [phone] Allergies Active Allergy Reactions Criticality Noted Date Comments Iodides Anaphylaxis High 04/16/2019 States happened at the age of 24. States the new contrast does not cause any reactions Metronidazole Other (See Comments) 04/16/2019 Causes vertigo Nsaids 05/11/2020 Due to fatty liver Acetaminophen 05/11/2020 Due to fatty liver Medications montelukast (SINGULAIR) 10 MG tablet Take 10 mg by mouth nightly Active rivaroxaban (XARELTO) 20 MG TABS tablet Take 20 mg by mouth nightly Active pregabalin (LYRICA) 150 MG capsule Take 150 mg by mouth in the morning. Active albuterol sulfate HFA (PROVENTIL;VENT PANCHO;PROAIR) 108 (90 Base) MCG/ACT inhaler Inhale 2 puffs into the lungs every 6 hours as needed for Wheezing Active albuterol (PROVENTIL) (2.5 MG/3ML) 0.083% nebulizer solution Take 2.5 mg by nebulization every 6 hours as needed for Wheezing Active zolpidem (AMBIEN) 10 MG tablet Take by mouth nightly as needed for Sleep. Active dilTIAZem (CARDIZEM LA) 180 MG TB24 extended release tablet Take 180 mg by mouth nightly Active ADVAIR DISKUS 250-50 MCG/ACT AEPB diskus inhaler 2 Active beclomethasone (QVAR REDIHALER) 80 MCG/ACT AERB inhaler Inhale 1 puff into the lungs 2 times daily Active pregabalin (LYRICA) 300 MG capsule Take 300 mg by mouth nightly as needed. Active cyclobenzaprine (FLEXERIL) 10 MG tablet TAKE 1 TABLET BY MOUTH EVERY DAY AT BEDTIME NEEDED 2 Active Active Problems Problem Noted Date Diagnosed Date Primary osteoarthritis of right hip 07/23/2022 Primary osteoarthritis 07/23/2022 Total knee replacement status, left 05/30/2020 Resolved Problems Problem Noted Date Diagnosed Date Resolved Date Primary osteoarthritis of left knee 05/30/2020 05/30/2020 Family History Medical History Relation Name Comments Heart Disease Father Other Father Black lung Heart Disease Mother Kidney Disease Sister Liver Disease Sister Relation Name Status Comments Father Mother Sister Social History Tobacco Use Types Packs/Day Years Used Date Smoking Tobacco: Never Smokeless Tobacco: Never Tobacco Cessation:Counseling Given: Not Answered Alcohol Use Standard Drinks/Week Comments Not Currently 0 (1 standard drink = 0.6 oz pur e alcohol) Comments No Sex and Gender Information Value Date Recorded Sex Assigned at Not on file Legal Sex Female 12:15 PM EDT Gender Identity Not on file Sexual Orientation Not on file Last Filed Vital Signs Vital Sign Reading Time Taken Comments Blood Pressure 117/44 07/23/2022 3:08 PM EDT Pulse 85 07/23/2022 3:08 PM EDT Temperature 36.7 C (98.1 F) 07/23/2022 3:08 PM EDT Respiratory Rate 16 07/23/2022 3:08 PM EDT Oxygen Saturation 96% 07/23/2022 3:08 PM EDT Inhaled Oxygen Concentration - - Weight 91.2 kg (201 lb) 07/23/2022 6:20 AM EDT Height 165.1 cm (5' 5 ) 06/27/2022 12:39 PM EDT Body Mass Index 33.45 06/27/2022 12:39 PM EDT Plan of Treatment Health Maintenance Due Date Last Done Comments Depression Screen 1964 Hepatitis C screen 1970 DTaP/Tdap/Td vaccine (1 - Tdap) 1971 Breast cancer screen 1992 Lipids 1992 Colonoscopy 1997 Colorectal Cancer Screen 1997 FIT/FOBT: Average risk 1997 Fecal-DNA (Cologuard): [place] risk 1997 Sigmoidoscopy/CT colonography 1997 Shingles vaccine (1 of 2) 2002 DEXA (modify frequency per FRAX score) 2007 Pneumococcal 50+ years Vacci ne (2 of 2 - PCV) 04/20/2020 04/20/2019 COVID-19 Vaccine (2 - 2023-2 5 season) 2024 02/07/2021 Annual Wellness Visit (Medicare Advantage) 12/01/2024 Flu vaccine (Season Ended) 07/01/202510/16, 09/22/2020 Respiratory Syncytial Virus (RSV) or age 60 yrs+ (1 - 1-dose 75+ series) 2027 Hepatitis A vaccine Aged Out No longe r eligible based on patient's age to complete this topic Hepatitis B vaccine Aged Out No longe r eligible based on patient's age to complete this topic Hib vaccine Aged Out No longer eligi ble based on patient's age to complete this topic Meningococcal (ACWY) vaccine Aged Out No longer eligible based on patient's age to complete this topic Meningococcal B vaccine Aged Out No l onger eligible based on patient's age to complete this topic Polio vaccine Aged Out No longer elig ible based on patient's age to complete this topic Medical Devices Implanted Type Area Knitted Goods Shaper Device Identifier Shelf Expiration Date Model / Serial / Lot Cement Hi Viscosity Smartset 40gr Implanted:Qty: 1 on 05/30/2020 by Yohan Pelayo MD at [facility] Cement Left: Knee JNJ: [employer]-PMM 04/30/2021 [id number] / / [id number] Impl Knee Patella Itotal Ipoly 35x7mm Implanted:Qty: 1 on 05/30/2020 by Yohan Pelayo MD at [facility] Knee Left: Knee [employer]-PMM 02/28/2022 [id number] / / [id number] Impl Kit Itotal Ps Ipoly - [id number] Implanted:Qty: 1 on 05/30/2020 by Yohan Pelayo MD at [facility] Knee Left: Knee [employer]-PMM 11/30/2020 [id number] / [id number] / Cup Acet [id number] Hip Gription Nishi Cementless Fix Sect Ser - [id number] Implanted:Qty: 1 on 07/23/2022 by Yohan Pelayo MD at [facility] Right: Hip [facility] DEPUY [facility] [employer]- 02/29/2032 [id number] / / [id number] Eliminator H [place] For 48-60mm Pinn Hip Shell - [id number] Implanted:Qty: 1 on 07/23/2022 by Yohan Pelayo MD at [facility] Right: Hip [facility] DEPUY [employer]- 04/30/2032 [id number] / / [id number] Screw Bne L30mm Dia6.5mm Canc Hip S Stl Gription Full Thrd - [id number] Implanted:Qty: 1 on 07/23/2022 by Yohan Pelayo MD at [facility] Right: Hip [facility] DE[employer]Y [employer]- 08/30/2031 [id number] / / [id number] Liner Acet Od52mm Id36mm +4mm Offset 10deg Hip Polyeth Mtl - [id number] Implanted:Qty: 1 on 07/23/2022 by Yohan Pelayo MD at [facility] Right: Hip [facility] DEPUY [employer]- 01/28/2026 [id number] / / [id number] Stem Fem Sz 7 L109mm 12/14 Tapr Std Offset Hip Duofix Cllrd - [id number] Implanted:Qty: 1 on 07/23/2022 by Yohan Pelayo MD at [facility] Right: Hip [facility] DE[employer]Y [employer]- 04/30/2032 [id number] / / [id number] Head Fem [id number] +1.5mm Offset 12/14 Tapr Hip Ceramic - [id number] Implanted:Qty: 1 on 07/23/2022 by Yohan Pelayo MD at [facility] Right: Hip JNJ [employer]-WD 05/30/2027 [id number] / / [id number] Insurance AETNA MEDICARE AETNA MEDICARE Advance Directives Documents on File Type Date Recorded Patient Tubing Tester Expl anation ACP-Advance Directive 05/30/2020 6:20 AM ACP-Advance Directive 05/30/2020 6:20 AM D POA ACP-Advance Directive 05/30/2020 6:20 AM * Full Code (Latest Code Status on File) Date Activated Date Inactivated Comments 07/23/2022 1:04 PM 07/23/2022 7:11 PM * Full Code Date Activated Date Inactivated Comments 05/30/2020 1:49 PM 05/30/2020 10:33 PM Care Teams Seed Collector Relationship Specialty Start Date End Date Giovanny Ellington DO [address] [place] [address] PCP - General Internal Medicine 07/17/22
--- NOTE | 2025-05-17 11:55 | PM.STRESS ---
Stress Test Stress Test Allergies Allergy/AdvReac Type Severity Reaction Status Date / Time iodine Allergy Severe Anaphylaxis Verified 10/23/24 16:26 metronidazole Allergy Severe vertigo Verified 11/04/24 06:50 acetaminophen (From Tylenol) AdvReac fatty liver Verified 11/04/24 06:50 ibuprofen (From Advil) AdvReac Unknown Verified 10/23/24 16:26 Requesting physician: Giovanny Ellington Procedure: Lexiscan pharmacological stress test General Information: Reason for Stress Test: [Chest pain, dyspnea] Cardiac History and Risk Factors: [Hypertension] Resting 12 - Lead Electrocardiogram: Sinus rhythm, with premature ventricular contractions in a bigeminal pattern Left bundle branch block Abnormal ECG Stress Test: Protocol: [Lexiscan pharmacological stress test] Exercise Capacity: [N/A] Blood Pressure Response: [N/A] Rhythm: [Sinus with frequent premature ventricular contractions] ST - Response: [Uninterpretable due to underlying left bundle branch block] Patient Response: [No chest pain or shortness of breath] Interpretation: 1. Uninterpretable Lexiscan pharmacological stress test due to underlying left bundle branch block 2. Nuclear images are to be read, interpreted, and reported separately
== END 2025-05-17 07:31 | disposition home or self-care (01) ==
LOC: NM 07:30
PROVIDERS: PCP Internal Medicine; Visit Provider Internal Medicine
DX: R07.9 Chest pain, unspecified (principal); R06.09 Other forms of dyspnea; I48.0 Paroxysmal atrial fibrillation; I49.8 Other specified cardiac arrhythmias; I10 Essential (primary) hypertension